=== PATIENT | male | born 1965 | race Caucasian/White ===

== ENCOUNTER 2017-05-02 17:56 | Emergency (ER) | payer MEDICARE, OTHER ==
[2017-05-02 18:00] VITALS: RESP 16
[2017-05-02] MEDS ORDERED: ONDANSETRON 4 MG/2 ML VIAL IVP STA (19:11)
[2017-05-02] MEDS ORDERED: SODIUM CHLORIDE 0.9% 1,000 ML IV STA (19:11)
[2017-05-02] MEDS ORDERED: HYDROmorphone 1 MG/ML 1 ML SYRINGE IVP STA ×2 (19:11→20:58)
[2017-05-02] MEDS ORDERED: RX INFO: IV CONTRAST WAS GIVEN 1 EACH MISC MISCELLANE PRN (19:13)
--- NOTE | 2017-05-02 19:17 | ED ---
Abdominal Pain HPI - General Chief Complaint: Abdominal Pain Stated Complaint: abd pain Time Seen by Provider: 05/02/17 19:03 Source: patient, RN notes reviewed Mode of arrival: ambulatory Limitations: no limitations - History of Present Illness Initial Comments: 51 yo male presents to the ER with cc of right lower quadrant abdominal pain x 1 day. Patient states the pain started today and has slowly gotten worse. Patient states the chest is constant pain in the right lower quadrant. Patient denies any nausea vomiting. He denies any radiation the pain. Patient states the pain is constant. Patient states it is worse touch. Patient states he is not nauseated any blood in the urine. Patient denies any abdominal surgeries. Patient denies any history of anything like this in the past. Patient denies any recent fever, chills, shortness of breath, chest pain, back pain, nausea vomiting, numbness or tingling, dysuria or hematuria, constipation or diarrhea, headaches or visual changes, or any other current symptoms. - Related Data Home Medications Medication Instructions Recorded Confirmed Estradiol 4 mg PO BID 10/06/15 05/02/17 Medroxyprogesterone Acetate 10 mg PO BID 10/06/15 05/02/17 Propranolol HCl [Inderal LA] 160 mg PO DAILY 10/06/15 05/02/17 Sertraline [Zoloft] 50 mg PO TID 10/06/15 05/02/17 Spironolactone 100 mg PO BID 10/06/15 05/02/17 lamoTRIgine [LaMICtal] 100 mg PO BID 10/06/15 05/02/17 lamoTRIgine [LaMICtal] 150 mg PO BID 10/06/15 05/02/17 risperiDONE 2 mg PO DAILY 10/06/15 05/02/17 traZODone HCL 150 mg PO BID 10/06/15 05/02/17 Hydrocodone/Acetaminophen [[place] 1 tab PO TID PRN 05/02/17 05/02/17 10-325] Ibuprofen [Motrin] 800 mg PO TID PRN 05/02/17 05/02/17 Previous Rx's Medication Instructions Recorded Dicyclomine [Bentyl] 10 mg PO TID #20 capsule 05/02/17 Ondansetron Odt [Zofran ODT] 4 mg PO Q8HR PRN #20 tab 05/02/17 Allergies Allergy/AdvReac Type Severity Reaction Status Date / Time Penicillins Allergy Unknown Verified 05/02/17 19:17 Review of Systems ROS Statement: Those systems with pertinent positive or pertinent negative responses have been documented in the HPI. ROS Other: All systems not noted in ROS Statement are negative. Past Medical History Additional Past Medical History / Comment(s): migraines. History of Any Multi-Drug Resistant Organisms: None Reported Additional Past Surgical History / Comment(s): neck surgery Past Psychological History: Anxiety, Depression, Schizoaffective Disorder Smoking Status: Current every day smoker Past Alcohol Use History: Occasional Past Drug Use History: None Reported General Exam - General Exam Comments Initial Comments: General: The patient is awake and alert, in no distress, and does not appear acutely ill. Eye: Pupils are equal, round and reactive to light, extra-ocular movements are intact; there is normal conjunctiva bilaterally. No signs of icterus. Ears, nose, mouth and throat: There are moist mucous membranes and no oral lesions. Neck: The neck is supple, there is no tenderness. Cardiovascular: There is a regular rate and rhythm. No murmur, rub or gallop is appreciated. Respiratory: Lungs are clear to auscultation, respirations are non-labored, breath sounds are equal. No wheezes, stridor, rales, or rhonchi. Gastrointestinal: Soft, non-distended, mild tenderness in right lower quadrant of the abdomen without masses or organomegaly noted. There is no rebound or guarding present. No CVA tenderness. Bowel sounds are unremarkable. Back: There is no tenderness to palpation in the midline. There is no obvious deformity. No rashes noted. Musculoskeletal: Normal ROM, no tenderness, There is no pedal edema. There is no calf tenderness or swelling. Sensation intact. Pulses equal bilaterally 2+. Neurological: CN II-XII intact, There are no obvious motor or sensory deficits. Coordination appears grossly intact. Speech is normal. Skin: Skin is warm and dry and no rashes or lesions are noted. Psychiatric: Cooperative, appropriate mood & affect, normal judgment. Limitations: no limitations Course Vital Signs 05/02/17 17:58 Temperature 98.6 F Pulse Rate 77 Respiratory 16 Rate Blood Pressure 137/95 O2 Sat by Pulse 97 Oximetry Medical Decision Making - Medical Decision Making 51-year-old male presents emergency Department chief complaint of right lower quadrant abdominal pain. Labwork is reviewed. At this time there is time. Acute finding on CAT scan. Patient was reassessed and states that he is feeling better. Patient will start her on Bentyl and Zofran for home. We did discuss etiologies this. We discussed what this could turn into an appropriate follow-up return parameters. Patient stated that he understood and all his questions have been answered. He will be discharged. - Lab Data Result diagrams: 05/02/17 19:20 05/02/17 19:20 Lab Results 05/02/17 05/02/17 05/02/17 Range/Units 19:20 19:20 19:20 WBC 8.4 (3.8-10.6) k/uL RBC 4.19 L (4.30-5.90) m/uL Hgb 13.7 (13.0-17.5) gm/dL Hct 41.3 (39.0-53.0) % MCV 98.4 (80.0-100.0) fL MCH 32.6 (25.0-35.0) pg MCHC 33.1 (31.0-37.0) g/dL RDW 13.3 (11.5-15.5) % Plt Count 256 (150-450) k/uL Neutrophils % 79 % Lymphocytes % 14 % Monocytes % 3 % Eosinophils % 2 % Basophils % 1 % Neutrophils # 6.7 (1.3-7.7) k/uL Lymphocytes # 1.2 (1.0-4.8) k/uL Monocytes # 0.3 (0-1.0) k/uL Eosinophils # 0.2 (0-0.7) k/uL Basophils # 0.1 (0-0.2) k/uL PT 10.8 (9.0-12.0) sec INR 1.1 (<1.1) APTT 25.7 (22.0-30.0) sec Sodium 136 L (137-145) mmol/L Potassium 4.6 (3.5-5.1) mmol/L Chloride 104 (98-107) mmol/L Carbon Dioxide 21 L (22-30) mmol/L Anion Gap 11 mmol/L BUN 13 (9-20) mg/dL Creatinine 0.97 (0.66-1.25) mg/dL Est GFR (MDRD) Af Amer >60 (>60 ml/min/1.73 sqM) Est GFR (MDRD) Non-Af >60 (>60 ml/min/1.73 sqM) Glucose 95 (74-99) mg/dL Plasma Lactic Acid Zi (0.7-2.0) mmol/L Calcium 9.6 (8.4-10.2) mg/dL Total Bilirubin 0.8 (0.2-1.3) mg/dL AST 13 L (17-59) U/L ALT 16 L (21-72) U/L Alkaline Phosphatase 70 (38-126) U/L Total Protein 7.6 (6.3-8.2) g/dL Albumin 4.5 (3.5-5.0) g/dL Amylase 51 (30-110) U/L Lipase 42 (23-300) U/L Urine Color Urine Appearance (Clear) Urine pH (5.0-8.0) Ur Specific [place] (1.001-1.035) Urine Protein (Negative) Urine Glucose (UA) (Negative) Urine Ketones (Negative) Urine Blood (Negative) Urine Nitrite (Negative) Urine Bilirubin (Negative) Urine Urobilinogen (<2.0) mg/dL Ur Leukocyte Esterase (Negative) Urine RBC (0-5) /hpf Urine WBC (0-5) /hpf Ur Squamous Epith Cells (0-4) /hpf Hyaline Casts (0-2) /lpf Urine Mucus (None) /hpf 05/02/17 05/02/17 Range/Units 19:20 19:35 WBC (3.8-10.6) k/uL RBC (4.30-5.90) m/uL Hgb (13.0-17.5) gm/dL Hct (39.0-53.0) % MCV (80.0-100.0) fL MCH (25.0-35.0) pg MCHC (31.0-37.0) g/dL RDW (11.5-15.5) % Plt Count (150-450) k/uL Neutrophils % % Lymphocytes % % Monocytes % % Eosinophils % % Basophils % % Neutrophils # (1.3-7.7) k/uL Lymphocytes # (1.0-4.8) k/uL Monocytes # (0-1.0) k/uL Eosinophils # (0-0.7) k/uL Basophils # (0-0.2) k/uL PT (9.0-12.0) sec INR (<1.1) APTT (22.0-30.0) sec Sodium (137-145) mmol/L Potassium (3.5-5.1) mmol/L Chloride (98-107) mmol/L Carbon Dioxide (22-30) mmol/L Anion Gap mmol/L BUN (9-20) mg/dL Creatinine (0.66-1.25) mg/dL Est GFR (MDRD) Af Amer (>60 ml/min/1.73 sqM) Est GFR (MDRD) Non-Af (>60 ml/min/1.73 sqM) Glucose (74-99) mg/dL Plasma Lactic Acid Zi 0.9 (0.7-2.0) mmol/L Calcium (8.4-10.2) mg/dL Total Bilirubin (0.2-1.3) mg/dL AST (17-59) U/L ALT (21-72) U/L Alkaline Phosphatase (38-126) U/L Total Protein (6.3-8.2) g/dL Albumin (3.5-5.0) g/dL Amylase (30-110) U/L Lipase (23-300) U/L Urine Color Yellow Urine Appearance Clear (Clear) Urine pH 5.5 (5.0-8.0) Ur Specific [place] 1.025 (1.001-1.035) Urine Protein 1+ H (Negative) Urine Glucose (UA) Negative (Negative) Urine Ketones 3+ H (Negative) Urine Blood Trace H (Negative) Urine Nitrite Negative (Negative) Urine Bilirubin Negative (Negative) Urine Urobilinogen 2.0 (<2.0) mg/dL Ur Leukocyte Esterase Negative (Negative) Urine RBC 2 (0-5) /hpf Urine WBC 6 H (0-5) /hpf Ur Squamous Epith Cells 3 (0-4) /hpf Hyaline Casts 4 H (0-2) /lpf Urine Mucus Rare H (None) /hpf - Radiology Data Radiology results: report reviewed, image reviewed Disposition Clinical Impression: Abdominal pain Disposition: TRANSFER TO PSYCH HOSP/UNIT Condition: Stable Instructions: Abdominal Pain (ED) Additional Instructions: Please use medication as discussed. Please follow up with family doctor if symptoms have not improved over the next two days. Please return to the emergency room if your symptoms increase or worsen or for any other concerns. Prescriptions: Dicyclomine [Bentyl] 10 mg PO TID #20 capsule Ondansetron Odt [Zofran ODT] 4 mg PO Q8HR PRN #20 tab PRN Reason: Nausea Referrals: Umang Ace MD [Primary Care Provider] - 1-2 days Time of Disposition: 20:57
[2017-05-02 19:45] LABS: Appearance,Urine Clear (Clear); Bilirubin,Urine Negative (Negative); Glucose,Urine (UA) Negative (Negative); Ketones,Urine 3+ (Negative); Leukocyte Esterase,Urine Negative (Negative); Mucus,Urine Rare /hpf; Nitrite,Urine Negative (Negative); PH, Urine 5.5 (5.0-8.0); Particle Count 3728; Protein,Urine 1+ (Negative); RBC,Urine 2 /hpf (0-5); Specific Gravity,Urine 1.025 (1.001-1.035); Squamous Epithelial Cell,Urine 3 /hpf (0-4); UA Billing (MACRO vs. MICRO) MICRO; WBC,Urine 6 /hpf (0-5)
[2017-05-02 19:46] LABS: Basophils # (A) 0.1 k/uL (0-0.2); Basophils % (A) 1 %; CH 33.7; CHCM 34.5; Eosinophils # (A) 0.2 k/uL (0-0.7); Eosinophils % (A) 2 %; HCT 41.3 % (39.0-53.0); HDW 2.51; HGB 13.7 gm/dL (13.0-17.5); Luc # (Auto) 0.11; Luc % (Auto) 1; Lymphocytes # (A) 1.2 k/uL (1.0-4.8); Lymphocytes % (A) 14 %; MCH 32.6 pg (25.0-35.0); MCHC 33.1 g/dL (31.0-37.0); MCV 98.4 fL (80.0-100.0); Mean Platelet Volume 6.8; Monocytes # (A) 0.3 k/uL (0-1.0); Monocytes % (A) 3 %; Neutrophils # (A) 6.7 k/uL (1.3-7.7); Neutrophils % (A) 79 %; RBC 4.19 m/uL (4.30-5.90); RDW 13.3 % (11.5-15.5); WBC 8.4 k/uL (3.8-10.6); WBC (Perox) 8.56
[2017-05-02 19:52] LABS: ALT 16 U/L (21-72); AST 13 U/L (17-59); Alkaline Phosphatase 70 U/L (38-126); Amylase 51 U/L (30-110); Anion Gap 11 mmol/L; Blood Urea Nitrogen 13 mg/dL (9-20); Calcium 9.6 mg/dL (8.4-10.2); Carbon Dioxide 21 mmol/L (22-30); Chloride 104 mmol/L (98-107); Glucose 95 mg/dL (74-99); Non-African American GFR(MDRD) >60 (>60 ml/min/1.73 sqM); Potassium 4.6 mmol/L (3.5-5.1); Sodium 136 mmol/L (137-145); Total Bilirubin 0.8 mg/dL (0.2-1.3); Total Protein 7.6 g/dL (6.3-8.2)
[2017-05-02 19:56] LABS: INR 1.1 (<1.1)
[2017-05-02 19:57] LABS: Partial Thromboplastin Time 25.7 sec (22.0-30.0); Prothrombin Time 10.8 sec (9.0-12.0)
--- NOTE | 2017-05-02 20:43 | CT ---
EXAMINATION TYPE: CT abdomen pelvis w con DATE OF EXAM: 05/02/2017 COMPARISON: NONE HISTORY: Right lower quadrant pain x [address] DLP: 1321.00 mGycm Automated exposure control for dose reduction was used. TECHNIQUE: Helical acquisition of images was performed from the lung bases through the pelvis. CONTRAST: Performed without Oral Contrast and with IV Contrast, patient injected with 100 mL of Omnipaque 300. FINDINGS: Lung bases are clear. There is no pleural effusion. Heart size is normal. Liver spleen pancreas gallbladder appear normal. Bile ducts are not dilated. There is no adrenal mass . Kidneys show satisfactory contrast opacification. There is no hydronephrosis. There is no retroperi toneal adenopathy. There is no ascites. Bladder distends smoothly. There is no pelvic mass. Appendix is not definitely seen. There is no sign of appendicitis. There is no sign of a hernia. The bony stru ctures are intact. There is no evidence of a fracture. IMPRESSION: NEGATIVE CT SCAN OF THE ABDOMEN AND PELVIS. NO SIGN OF APPENDICITIS.
[2017-05-02 21:07] VITALS: BP 116/56; PULSE 56; TEMP 97.8
== END 2017-05-02 22:00 | disposition home or self-care (01) ==
LOC: EC 17:56
DX: R10.31 Right lower quadrant pain (principal); F32.9 Major depressive disorder, single episode, unspecified; F17.200 Nicotine dependence, unspecified, uncomplicated; Z88.0 Allergy status to penicillin; Z79.899 Other long term (current) drug therapy
CPT/HCPCS: 99284; 96374; 96376; 96375; 96361; 36415; 80053; 82150; 83605; 83690; 85025; 85610; 85730; 81001; 87040; 87086; 74177; J2405; J1170; Q9967

== ENCOUNTER → 2017-05-29 | Outpatient (CLI) | payer MEDICARE, OTHER ==
--- NOTE | 2017-05-29 21:43 | NM ---
EXAMINATION TYPE: NM hepatobiliary w EF DATE OF EXAM: 05/29/2017 COMPARISON: NONE HISTORY: TECHNIQUE: After the intravenous administration of 5.4 mCi Tc 99m Mebrofenin hepatobiliary scintigrap hy is performed. Immediate images post injection. FINDINGS: There is prompt uptake of the tracer by the liver that has normal size and contour. There is tracer i n the small bowel at 15 minutes and in the gallbladder at 5 minutes which excludes obstruction of the cystic duct and common bile duct. There is no focal liver defect. Tracers mostly cleared from the li walter at one hour. The post ensure images show gallbladder ejection fraction of 48% which is normal. IMPRESSION: Normal hepatobiliary scan. Normal gallbladder ejection fraction of 48%.
== END | disposition home or self-care (01) ==
LOC: RADNMMAIN 14:33
PROVIDERS: ATTEND Internal Medicine
DX: R10.11 Right upper quadrant pain (principal); Z88.0 Allergy status to penicillin
CPT/HCPCS: 78226; A9537

== ENCOUNTER → 2018-03-06 | Outpatient (CLI) | payer MEDICARE, OTHER ==
--- NOTE | 2018-03-06 15:20 | CT ---
EXAMINATION TYPE: CT lumbar spine wo con DATE OF EXAM: 03/06/2018 COMPARISON: NONE HISTORY: Lower back pain CT DLP: [address] of the lumbar spine was performed. Bone and soft tissue window settings are submitted as well as coronal and sagittal reconstructions. L1-L2: Normal disc space height. No disc herniation protrusion or central stenosis. No facet joint arthropathy. No evidence for foraminal encroachment. L2-L3: Normal disc space height. No disc herniation protrusion or central stenosis. No facet joint arthropathy. No evidence for foraminal encroachment. L3-L4: Mild degenerative disc space narrowing. Moderate circumferential disc bulge greatest posterior ly. Effacement ventral thecal sac. Bilateral lateral recess stenosis. L4-L5: Mild degenerative disc space narrowing. Subligamentous disc herniation paracentrally and to th e right resulting in effacement of the ventral thecal sac and right lateral recess stenosis as well a s right foraminal encroachment. Mild central stenosis noted. L5-S1: Mild degenerative disc space narrowing. Subligamentous disc bulge. No herniation of protrusion . No central stenosis. No paraspinal masses are identified. Lumbar segments are free if fracture. IMPRESSION: 1. Right paracentral disc herniation at L4-5 resulting in right lateral recess stenosis as well as a borderline central stenosis and right foraminal encroachment. 2. Disc bulging with lateral recess stenosis at L3-4 as noted.
--- NOTE | 2018-03-06 15:50 | MR ---
EXAMINATION TYPE: MR brain wo con DATE OF EXAM: 03/06/2018 COMPARISON: NONE HISTORY: Headaches with some left-sided hearing loss and dizziness. TECHNIQUE: Multiplanar, multisequence imaging of the brain and brainstem is performed without IV cont rast. FINDINGS: Diffusion weighted images demonstrate no evidence of a recent infarct or other diffusion abnormality. There is no worrisome extra-axial fluid collection. There is ventricular and sulcal prominence consis tent with mild diffuse age-related cerebral atrophy. Small areas of low-attenuation periventricular w ed[place] matter are noted consistent with mild to minimal chronic small vessel ischemic change. Midline structures demonstrate normal morphology. The craniocervical junction appears within normal limits. Normal vascular flow voids are present. There is moderate to severe mucosal thickening involv ing maxillary sinuses bilaterally. There is moderate mucosal thickening involving ethmoid sinuses brandon aterally. There is mild mucosal thickening involving bilateral frontal sinuses. The globes are intact bilaterally. IMPRESSION: 1. No evidence of a recent infarct. 2. Increased fluid signal left mastoid air cells raises concern for left-sided mastoiditis, correlate clinically. 3. Mild to minimal diffuse age-related cerebral atrophy and chronic small vessel ischemic change. 4. Chronic paranasal sinus disease as detailed above.
--- NOTE | 2018-03-06 16:23 | CT ---
EXAMINATION TYPE: CT cervical spine wo con DATE OF EXAM: 03/06/2018 COMPARISON: NONE HISTORY: Neck pain CT DLP: [address] of the cervical spine was performed with bone and soft tissue window settings submitted . Coronal and sagittal reconstruction is obtained. There is normal alignment and prevertebral soft tissues. Thyroid nodules are noted which are nonspecific. Nodular density right upper lobe image 100. CT chest recommended. Postsurgical changes of the anterior cervical discectomy and fusion at C5-6 through C7. Anterior fixa tion plate noted. Solid fusion seen. No evidence for recurrent disease. Mild posterior hypertrophic c hange. Mild degenerative disc space narrowing noted at C3-4 and C4-5 with mild posterior disc bulge. No kita k herniation or protrusion. No central stenosis. Foramina are patent. IMPRESSION: 1. Degenerative disc disease as noted. 2. Changes of ACDF with appropriate alignment. 3. Right upper lobe pulmonary nodule. CT chest recommended.
== END | disposition home or self-care (01) ==
LOC: RADCTMAIN 14:30
PROVIDERS: ATTEND Psychiatry & Neurology Neurology
DX: M48.061 Spinal stenosis, lumbar region without neurogenic claudication (principal); M51.26 Other intervertebral disc displacement, lumbar region; M50.30 Other cervical disc degeneration, unspecified cervical region; I67.82 Cerebral ischemia; G31.9 Degenerative disease of nervous system, unspecified; Z98.1 Arthrodesis status; Z88.0 Allergy status to penicillin; Z88.2 Allergy status to sulfonamides
CPT/HCPCS: 70551; 72125; 72131

== ENCOUNTER 2018-03-11 12:24 | Emergency (ER) | payer MEDICARE, OTHER ==
[2018-03-11 12:43] VITALS: PULSE 63; RESP 20
--- NOTE | 2018-03-11 12:47 | ED ---
General Adult HPI - General Chief complaint: Neck Pain/Injury Stated complaint: Metal plates in throat causing diff breathing Time Seen by Provider: 03/11/18 12:44 Source: patient, RN notes reviewed, old records reviewed Mode of arrival: ambulatory Limitations: no limitations - History of Present Illness Initial comments: This is a 52-year-old male to the ER for evaluation of headache. Patient has current headache now. Neck pain. Anterior neck pain. Patient has significant history of neck disease back disease disc disease. Patient had surgery about 10 years ago. Patient states he had a CAT scan as of recent with his neurologist still complaining with pain. Patient states he felt a twisting motion in his neck recently and currently complaining of neck pain. Concern for movement of plates etc. - Related Data Home Medications Medication Instructions Recorded Confirmed Estradiol 4 mg PO BID 10/06/15 05/02/17 Medroxyprogesterone Acetate 10 mg PO BID 10/06/15 05/02/17 Propranolol HCl [Inderal LA] 160 mg PO DAILY 10/06/15 05/02/17 Sertraline [Zoloft] 50 mg PO TID 10/06/15 05/02/17 Spironolactone 100 mg PO BID 10/06/15 05/02/17 lamoTRIgine [LaMICtal] 100 mg PO BID 10/06/15 05/02/17 lamoTRIgine [LaMICtal] 150 mg PO BID 10/06/15 05/02/17 risperiDONE 2 mg PO DAILY 10/06/15 05/02/17 traZODone HCL 150 mg PO BID 10/06/15 05/02/17 Hydrocodone/Acetaminophen [[place] 1 tab PO TID PRN 05/02/17 05/02/17 10-325] Ibuprofen [Motrin] 800 mg PO TID PRN 05/02/17 05/02/17 Previous Rx's Medication Instructions Recorded Dicyclomine [Bentyl] 10 mg PO TID #20 capsule 05/02/17 Ondansetron Odt [Zofran ODT] 4 mg PO Q8HR PRN #20 tab 05/02/17 Allergies Allergy/AdvReac Type Severity Reaction Status Date / Time Penicillins Allergy Unknown Verified 03/11/18 12:42 Review of Systems ROS Statement: Those systems with pertinent positive or pertinent negative responses have been documented in the HPI. ROS Other: All systems not noted in ROS Statement are negative. Past Medical History Additional Past Medical History / Comment(s): migraines. History of Any Multi-Drug Resistant Organisms: None Reported Additional Past Surgical History / Comment(s): neck surgery x2 Past Psychological History: Anxiety, Depression, Schizoaffective Disorder Smoking Status: Current every day smoker Past Alcohol Use History: Occasional Past Drug Use History: Marijuana General Exam Limitations: no limitations General appearance: alert, in no apparent distress Head exam: Present: atraumatic, normocephalic, normal inspection Eye exam: Present: normal appearance, PERRL, EOMI. Absent: scleral icterus, conjunctival injection, periorbital swelling ENT exam: Present: normal exam, mucous membranes moist Neck exam: Present: normal inspection. Absent: tenderness, meningismus, lymphadenopathy Respiratory exam: Present: normal lung sounds bilaterally. Absent: respiratory distress, wheezes, rales, rhonchi, stridor Cardiovascular Exam: Present: regular rate, normal rhythm, normal heart sounds. Absent: systolic murmur, diastolic murmur, rubs, gallop, clicks GI/Abdominal exam: Present: soft, normal bowel sounds. Absent: distended, tenderness, guarding, rebound, rigid Extremities exam: Present: normal inspection, full ROM, normal capillary refill. Absent: tenderness, pedal edema, joint swelling, calf tenderness Back exam: Present: normal inspection Neurological exam: Present: alert, oriented X3, CN II-XII intact Psychiatric exam: Present: normal affect, normal mood Skin exam: Present: warm, dry, intact, normal color. Absent: rash Course Vital Signs 03/11/18 12:39 Temperature 98.3 F Pulse Rate 63 Respiratory 20 Rate Blood Pressure 161/68 O2 Sat by Pulse 97 Oximetry - Reevaluation(s) Reevaluation #1: 03/11/18 13:46 Medical record prior imaging is reviewed Medical Decision Making - Medical Decision Making 52 male the ER for evaluation of neck pain. Possible slipped hardware. Patient to be discharged - Radiology Data Radiology results: report reviewed (CT cervical spine cervical spine shows no change), image reviewed Disposition Clinical Impression: Strain of neck muscle Disposition: HOME SELF-CARE Condition: Good Instructions: Cervical Strain (ED) Referrals: Umang Ace MD [Primary Care Provider] - 1-2 days
--- NOTE | 2018-03-11 14:09 | CT ---
EXAMINATION TYPE: CT cervical spine wo con DATE OF EXAM: 03/11/2018 COMPARISON: Previous study dated 03/06/2018 HISTORY: Pt states metal plates in throat causing difficulty breathing, cervical fusion [address] DLP: 351.6 mGycm Automated exposure control for dose reduction was used. TECHNIQUE: CT scan of the cervical spine is obtained without contrast, axial images are obtained, sa gittal and coronal reformatted images are also reviewed. FINDINGS: There are emphysematous changes within the lungs. There is an ill-defined right upper lobe pulmonary nodule best seen on image 98, unchanged from previous. There is apical scarring. There is thyroid nodularity on the left, unchanged from previous. Prevertebral soft tissues are other [place] unremarkable. There is been a previous ACDF from C5 through C7. Alignment remains normal. Atlantoaxial relationship s are normal. There is degenerative disc disease and hypertrophic spondylosis at C3-4 and C4-5, above the fusion. There is mild facet arthropathy on the left at the C5-6 level. There is also bilateral f acet arthropathy at C3-4. This is causing bilateral intervertebral foraminal narrowing. There is a si milar appearance at C4-5 with mild, bilateral intervertebral foraminal narrowing there is also interv ertebral foraminal narrowing at C5-6 due to hypertrophic changes. No definite protrusion is seen. IMPRESSION: 1. STATUS POST ACDF EXTENDING FROM C5-6 THROUGH C6-7. 2. DEGENERATIVE CHANGE IN THE REMAINING DISC LEVELS. 3. MULTILEVEL INTERVERTEBRAL FORAMINAL NARROWING. 4. NONSPECIFIC RIGHT UPPER LOBE PULMONARY NODULE. A CT SCAN OF THE CHEST WOULD BE SUGGESTED.
[2018-03-11 14:25] VITALS: BP 126/70; TEMP 98
== END 2018-03-11 14:27 | disposition home or self-care (01) ==
LOC: EC 12:24
DX: S16.1XXA Strain of muscle, fascia and tendon at neck level, initial encounter (principal); R51 Headache; F32.9 Major depressive disorder, single episode, unspecified; F41.9 Anxiety disorder, unspecified; F25.9 Schizoaffective disorder, unspecified; F17.200 Nicotine dependence, unspecified, uncomplicated; Z79.899 Other long term (current) drug therapy; Z88.0 Allergy status to penicillin
CPT/HCPCS: 72125; 99284

== ENCOUNTER → 2018-03-19 | Outpatient (CLI) | payer MEDICARE, OTHER ==
[2018-03-19 18:14] LABS: Blood Urea Nitrogen 10 mg/dL (9-20)
--- NOTE | 2018-03-19 22:12 | CT ---
EXAMINATION TYPE: CT chest w con DATE OF EXAM: 03/19/2018 COMPARISON: NONE HISTORY: Follow up Abnormal CT CT DLP: 261.2 mGycm Automated exposure control for dose reduction was used. CONTRAST: CT scan of the chest is performed with IV Contrast, patient injected with 100 mL of Isovue 300. FINDINGS: There is mild reticular density at the lung apices and minimal pleural thickening. I see no pulmonary mass. There is minimal focal pulmonary emphysema. Heart size is normal. There is no pericardial effusion. There is no mediastinal adenopathy. There are no hilar masses. Thoracic aorta appears normal without evidence of aneurysm or dissection. The bony thorax is intact. There is no pleural effusion. IMPRESSION: Mild upper lobe pleural and pulmonary scarring at the lung apices. Minimal COPD. Mild [place] bpleural pulmonary scarring at the right lung base posteriorly. I do not suspect a neoplastic process .
== END | disposition home or self-care (01) ==
LOC: RADCTMAIN 17:36
PROVIDERS: ATTEND Internal Medicine
DX: J44.9 Chronic obstructive pulmonary disease, unspecified (principal); J98.4 Other disorders of lung; Z88.0 Allergy status to penicillin
CPT/HCPCS: 82565; 84520; 71260; 36415; Q9967

== ENCOUNTER → 2018-03-20 | Outpatient (CLI) | payer MEDICARE, OTHER ==
--- NOTE | 2018-03-20 20:01 | US ---
EXAMINATION TYPE: US carotid duplex BILAT DATE OF EXAM: 03/20/2018 COMPARISON: NONE CLINICAL HISTORY: R55 Syncope. Hx of blackouts per patient. No HTN. EXAM MEASUREMENTS: RIGHT: Peak Systolic Velocity (PSV) cm/sec ----- Right CCA: 111.3 ----- Right ICA: 121.5 ----- Right ECA: 83.1 ICA/CCA ratio: 1.1 RIGHT: End Diastole cm/sec ----- Right CCA: 28.5 ----- Right ICA: 47.4 ----- Right ECA: 18.2 LEFT: Peak Systolic Velocity (PSV) cm/sec ----- Left CCA: 103.9 ----- Left ICA: 118.9 ----- Left ECA: 106.9 ICA/CCA ratio: 1.1 LEFT: End Diastole cm/sec ----- Left CCA: 32.5 ----- Left ICA: 57.5 ----- Left ECA: 18.9 VERTEBRALS (direction of flow): Right Vertebral: Antegrade Left Vertebral: Antegrade Rhythm: Normal Bilateral wall thickening. No significant stenosis or plaque. Slight elevated left proximal and mid CCA. Incidental finding: Left thyroid cystic appearing nodule with echogenic foci seen within = 2.0 x 1.5 x 0.9 cm IMPRESSION: There is antegrade flow in the vertebral arteries. The images and measurements suggest 2 0-30% stenosis in both internal carotid arteries. There is noted a complex cyst in the left thyroid l obe. Criteria for Assigning % of Stenosis / Diameter reduction (Estimation based on the indirect measurements of the internal carotid artery velocities (ICA PSV). 1. Normal (no stenosis)=ICA PSV < 125 cm/s: ratio < 2.0: ICA EDV<40 cm/s. 2. Less than 50% stenosis=ICA PSV < 125 cm/s: ratio < 2.0: ICA EDV<40 cm/s. 3. 50 to 69% stenosis=ICA PSV of 125 to 230 cm/s: ration 2.0 ? 4.0: ICA EDV 40-100 cm/s. 4. Greater than 70% stenosis to near occlusion= ICA PSV > 230 cm/s: ratio > 4.0: ICA EDV > 100 cm/s. 5. Near occlusion= ICA PSV velocities may be low or undetectable: variable ratio and ICA EDV. 6. Total occlusion=unable to detect flow.
== END | disposition home or self-care (01) ==
LOC: RADUSWWP 16:54
PROVIDERS: ATTEND Psychiatry & Neurology Neurology
DX: I65.23 Occlusion and stenosis of bilateral carotid arteries (principal)
CPT/HCPCS: 93880

== ENCOUNTER → 2018-05-02 | Outpatient (CLI) | payer MEDICARE, OTHER ==
[2018-05-02 15:36] LABS: Blood Urea Nitrogen 10 mg/dL (9-20)
--- NOTE | 2018-05-02 16:52 | CT ---
EXAMINATION TYPE: CT iac wo/w con DATE OF EXAM: 05/02/2018 COMPARISON: NONE HISTORY: Fluid in ears, earache CT DLP: 300 mGycm. Automated Exposure Control for Dose Reduction was Utilized. TECHNIQUE: CT scan of internal auditory canal is performed without contrast, thin cut axial images ar e obtained, coronal reformatted images are also reviewed. FINDINGS: The external auditory canals are patent bilaterally although there is a small amount of cer umen within the right external auditory canal that is nonocclusive. Mastoid air cells show no eviden ce of abnormal opacification bilaterally. The middle ear ossicles are symmetric and unremarkable. T here is no evidence of suspicious surrounding soft tissue density to suggest cholesteatoma. The scut um is preserved bilaterally. The cochlea and the semicircular canals are symmetric and unremarkable. Vestibular aqueduct and internal carotid canal appear unremarkable. Temporomandibular joints are symmetric and maintained. Visualized portion brain are suboptimally boris luated given technique, however no gross evidence of cerebellar pontine angle mass is identified. Sma ll bilateral antrostomy defects are seen. Bilateral maxillary 2 mm mucosal retention cysts are noted. There is moderate mucosal thickening within the sphenoid sinus and ethmoid sinuses. Frontal sinuses are well aerated. Soft tissue polypoid frontal skin lesion is incidentally noted. No abnormal postcon trast enhancement. IMPRESSION: 1. No CT evidence of cholesteatoma, mastoiditis, semicircular canal dehiscence, middle ear cavity flu id, gross evidence of cerebellar pontine angle mass, or other etiology for hearing loss seen on CT. E nhanced MRI could be performed to evaluate the 7th and 8th cranial nerves if there is further clinica l concern. 2. Small amount of nonocclusive cerumen within the right external auditory canal. No middle ear cavit y fluid. 3. Mild paranasal sinus disease as described above. 4. No abnormal postcontrast enhancement.
== END | disposition home or self-care (01) ==
LOC: RADCTMAIN 15:01
PROVIDERS: ATTEND Otolaryngology
DX: H91.90 Unspecified hearing loss, unspecified ear (principal)
CPT/HCPCS: 82565; 84520; 70482; 36415; Q9967

== ENCOUNTER → 2018-06-08 | Day surgery (SDC) | payer MEDICARE, OTHER ==
[~2018-06-08] MED LIST: SODIUM CHLORIDE 0.9% 1,000 ML IV SCH
[2018-06-08 08:11] VITALS: BP 127/69; PULSE 57; RESP 18; TEMP 98.3
--- NOTE | 2018-06-08 12:28 | P.PCN ---
Preoperative Diagnosis: Indication for the procedure Recurrent dizzy spells Twelve-lead ECG Sinus rhythm 58 beats a minute normal DC narrow QRS normal ST segments Tilt table test per protocol Baseline blood pressure 116/70 mmHg Baseline heart rate 58 beats a minute patient was tilted upright [place] 70 per protocol there was no change in her heart rate and blood pressure. No evidence for neurocardiogenic syncope she was laid supine at the end of the procedure Impression normal heart rate and blood pressure response to upright tilting
== END ==
LOC: CATHEP 07:47 → EDSEX 09:00
PROVIDERS: ATTEND Internal Medicine Clinical Cardiac Electrophysiology
DX: R55 Syncope and collapse (principal)
CPT/HCPCS: 93005; 93660

== ENCOUNTER → 2018-08-15 | Outpatient (CLI) | payer MEDICARE, OTHER ==
--- NOTE | 2018-08-15 21:45 | MR ---
EXAMINATION TYPE: MR thoracic spine wo con DATE OF EXAM: 08/15/2018 COMPARISON: No prior MRI thoracic spine. HISTORY: Mid back pain x several years CONTRAST: Performed utilizing 0 mL intravenous Gadavist gadolinium contrast. TECHNIQUE: Multiplanar, multiecho imaging on a 3.0 Gay magnet is performed through the thoracic spi ne. Spinal cord maintains normal signal through its visualized course. Vertebral body alignment is normal. Vertebral body heights are preserved. Disc heights are preserved. Disc hydration levels are preserved. No spinal canal stenosis is evident. T8-9: There is some subligamentous central disc herniation with moderate anterior thecal sac compress ion. This has cord contact and mild cord deformity. No AP spinal canal stenosis present. Neural ke en are patent. T9-10: There is a right paracentral tiny disc herniation with mild anterior thecal sac compression. N o cord contact is evident. No spinal canal stenosis or neural foraminal stenosis is present. T12-L1: Some mild right paracentral disc bulge has mild anterior thecal sac compression. No cord cont act is evident. No spinal canal stenosis or neural foraminal stenosis is present. Incidental note is made of disc bulging which may have some spinal canal narrowing at C3-4 and possib ly C4-5 on the blasting entryman images. Dedicated MRI of the cervical spine can be performed if clinically indic ated. These findings may have been present on a comparison MRI cervical spine 12/05/2011. IMPRESSIONS: 1. Central subligamentous disc herniation T8-T9 with moderate anterior thecal sac compression and cor d contact with mild cord deformity. 2. Tiny right paracentral disc herniation without cord contact or spinal canal stenosis T9-10. 3. Mild right paracentral disc bulging T12-L1 mild anterior thecal sac compression without cord conta ct. 4. Incidental note made of C3-4, C4-5 disc bulging with spinal canal narrowing blasting entryman images.
== END | disposition home or self-care (01) ==
LOC: RADMRIMAIN 20:15
PROVIDERS: ATTEND Psychiatry & Neurology Pain Medicine
DX: M51.24 Other intervertebral disc displacement, thoracic region (principal); M51.25 Other intervertebral disc displacement, thoracolumbar region; Z88.0 Allergy status to penicillin; Z88.2 Allergy status to sulfonamides
CPT/HCPCS: 72146

== ENCOUNTER → 2019-07-22 | Outpatient (CLI) | payer MEDICARE, OTHER ==
--- NOTE | 2019-07-22 09:53 | US ---
EXAMINATION TYPE: US thyroid st tissue head/neck DATE OF EXAM: 07/22/2019 COMPARISON: Carotid US CLINICAL HISTORY: E04.1 Thyroid Nodule,. GLAND SIZE: Right Lobe: 4.4 x 1.5 x 1.1 cm Overall Parenchyma: homogenous Left Lobe: 4.4 x 1.6 x 1.4 cm Overall Parenchyma: homogeneous Isthmus Thickness: 0.5 cm NODULES RIGHT: # of nodules measured on right: 1 1. 0.3 X 0.2 x 0.2 cm hypoechoic cystic nodule at the lower pole with well-defined margins; . This nodule is as tall as wide and shows no intranodular vascularity. Prior size: No Previous LEFT: # of nodules measured on left: 1. 2.2 X 1.2 x 1.0 cm hypoechoic mixed nodule at the lower pole with well-defined margins. Ringdown artifact is seen within this nodule indicating benign colloid. This nodule is wider than tall and sh ows no intranodular vascularity. Prior size: 2.0 x 1.5 x 0.9 cm as seen on carotid US exam. ISTHMUS: # of nodules measured in the isthmus: 0 Bilateral neck scanned, no evidence of lymphadenopathy. IMPRESSION: 1. 2.2 cm left thyroid nodules compatible with a benign colloid cyst. 2. Right-sided 0.3 cm nodule appears cystic and is likely benign. Follow-up could be considered in 12 months.
--- NOTE | 2019-07-22 10:46 | FL ---
EXAMINATION TYPE: FL barium swallow w video DATE OF EXAM: 07/22/2019 COMPARISON: NONE HISTORY: Dysphasia, thyroid nodule TECHNIQUE: Fluoroscopy. FINDINGS: Fluoroscopic guidance was provided for the procedure performed in conjunction with the [facility] pathology department. Please see complete report forthcoming from the Speech Pathology departmen t. Various consistencies from thin liquid to solids were administered. Fluoroscopy time 1 minute 34 seconds. Number of images: 0. There is transient penetration with thin liquids. No aspiration was evident. Remaining consistencies were normal without aspiration or penetration. No significant pooling was observed in the vallecula. There was normal propulsion of the bolus. IMPRESSION: 1. Mild transient penetration with thin liquids. 2. No aspiration evident with multiple consistencies.
== END | disposition home or self-care (01) ==
LOC: RADUSMAIN 09:00
PROVIDERS: ATTEND Psychiatry & Neurology Neurology
DX: E04.1 Nontoxic single thyroid nodule (principal)
CPT/HCPCS: 74230; 76536

== ENCOUNTER → 2020-02-11 | Outpatient (CLI) | payer MEDICARE, OTHER ==
--- NOTE | 2020-02-11 08:37 | US ---
EXAMINATION TYPE: US gallbladder DATE OF EXAM: 02/11/2020 COMPARISON: CT May 02 2017 CLINICAL HISTORY: K81.9 CHOLECYSTITIS. Right upper quadrant pain per patient. EXAM MEASUREMENTS: Liver Length: 7.9 cm Gallbladder Wall: 0.2 cm CBD: 0.5 cm Right Kidney: 11.8 x 4.5 x 6.6 cm Pancreas: wnl Liver: wnl Gallbladder: No stones seen Evidence for sonographic Quevedo's sign: No CBD: wnl Right Kidney: No hydronephrosis or masses seen Visualized pancreas and liver are unremarkable. Gallbladder seen without shadowing mobile gallstones. Limited images of right kidney show no gross hydronephrosis. IMPRESSION: No gallstones or ultrasound evidence for acute cholecystitis.
== END | disposition home or self-care (01) ==
LOC: RADUSWWP 08:08
PROVIDERS: ATTEND Surgery Plastic and Reconstructive Surgery
DX: K81.9 Cholecystitis, unspecified (principal); Z88.0 Allergy status to penicillin; Z88.2 Allergy status to sulfonamides
CPT/HCPCS: 76705

== ENCOUNTER → 2020-04-27 | Outpatient (CLI) | payer MEDICARE, OTHER | END | disposition home or self-care (01) | LOC: LABWHC1 11:02 | PROVIDERS: ATTEND Surgery Plastic and Reconstructive Surgery | DX: Z11.59 Encounter for screening for other viral diseases (principal) ==

== ENCOUNTER 2020-04-29 07:41 | Day surgery (SDC) | payer MEDICARE, OTHER ==
[2020-04-24 15:03] VITALS: BMI 22.3
--- NOTE | 2020-04-28 20:41 | P.GSHP ---
History of Present Illness H&P Date: 04/29/20 CHIEF COMPLAINT: GERD and colon screen HISTORY OF PRESENT ILLNESS: The patient is a 54-year-old male who presents with gastroesophageal reflux disease and need for colon screen. Upper and lower endoscopy were offered for further evaluation and management. PAST MEDICAL HISTORY: Please see list. PAST SURGICAL HISTORY: Please see list. MEDICATIONS: Please see list. ALLERGIES: Please see list. SOCIAL HISTORY: No illicit drug use FAMILY HISTORY: No reports of Crohn disease or ulcerative colitis. REVIEW OF ORGAN SYSTEMS: CONSTITUTIONAL: No reports of fevers or chills. PHYSICAL EXAM: VITAL SIGNS: Stable GENERAL: Well-developed pleasant in no acute distress. HEENT: No scleral icterus. Extraocular movements grossly intact. Moist buccal mucosa. NECK: Supple without lymphadenopathy. CHEST: Unlabored respirations. Equal bilateral excursions. CARDIOVASCULAR: Regular rate and rhythm. Distal 2+ pulses. ABDOMEN: Soft, nondistended. MUSCULOSKELETAL: No clubbing, cyanosis, or edema. ASSESSMENT: 1. Gastroesophageal reflux disease 2. Colon screen. PLAN: 1. Recommend proceeding with an upper and lower endoscopy Past Medical History Past Medical History: Asthma, COPD, Osteoarthritis (OA), Syncope Additional Past Medical History / Comment(s): Migraines. CHRONIC NECK AND LOWER BACK PAIN. recurrent morning vomitting- History of Any Multi-Drug Resistant Organisms: None Reported Past Surgical History: Orthopedic Surgery Additional Past Surgical History / Comment(s): Neck surgery x2 Past Anesthesia/Blood Transfusion Reactions: No Reported Reaction Smoking Status: Current every day smoker - Past Family History Mother Family Medical History: No Reported History Medications and Allergies Home Medications Medication Instructions Recorded Confirmed Type Fluticasone/Vilanterol [Breo 1 puff INHALATION QA 06/07/18 04/24/20 History Ellipta 100-25 Mcg Inhaler] Umeclidinium [place] [Incruse 1 puff IN QAM 06/07/18 04/24/20 History Ellipta] oxyCODONE-APAP 10-325MG [Percocet 1 tab PO Q6HR PRN 04/24/20 04/24/20 History 10-325 mg] Allergies Allergy/AdvReac Type Severity Reaction Status Date / Time Latex, Natural Rubber Allergy Rash/Hives Verified 04/24/20 15:04 Penicillins Allergy Unknown Verified 04/24/20 14:50 Childhood Sulfa (Sulfonamide Allergy Unknown Verified 04/24/20 14:50 Antibiotics) Childhood
[~2020-04-29 07:41] MED LIST changes: +LACTATED RINGERS 1,000 ML IV SCH; +LIDOCAINE 1% (10MG/ML) FOR IV START INTRADERMA PRN; -SODIUM CHLORIDE 0.9% 1,000 ML IV SCH
[2020-04-29 08:03] VITALS: TEMP 97.8
[2020-04-29 08:09] LABS: Glucose,Whole Blood 113 mg/dL (75-99)
[2020-04-29] MEDS ORDERED: PROPOFOL 10 MG/ML 20 ML VIAL IV ONE (08:21)
[2020-04-29] MEDS ORDERED: fentaNYL (PF) 50 MCG/ML 2 ML AMP ONE (08:21)
[2020-04-29] MEDS ORDERED: MIDAZOLAM 2 MG/2 ML VIAL ONE (08:21)
--- NOTE | 2020-04-29 08:25 | P.HPADDEND ---
H&P Addendum H&P Addendum Date: 04/29/20 Patient seen and evaluated. Benefits and risks of upper and lower endoscopy described.
--- NOTE | 2020-04-29 08:37 | P.PCN ---
Date of Procedure: 04/29/20 Description of Procedure: PREOPERATIVE DIAGNOSIS: Gastroesophageal reflux disease. Chronic tobacco abuse POSTOPERATIVE DIAGNOSIS: Chronic tobacco abuse Gastritis. Gastroesophageal reflux disease. Diaphragmatic hiatal hernia OPERATION: Esophagogastroduodenoscopy with biopsies along antrum. SURGEON: Selam Gutierrez MD ANESTHESIA: MAC. INDICATIONS: The patient is a 54-year-old male who presents with a history of reflux disease. Benefits and risks of the procedure were described. Informed consent was obtained. DESCRIPTION: The patient was brought into the endoscopy suite and laid in the left lateral decubitus position. An Olympus gastroscope was passed along the posterior oropharynx down to the distal esophagus where the squamocolumnar junction was encountered at 40 cm from the incisors. The stomach was entered and no bile reflux was found. Additional findings are listed below. Biopsies with cold forceps were obtained of the antrum. The first through third portion of the duodenum was examined and unremarkable. Retroflexion of the scope confirmed Hill grade 3 lower esophageal valve. The squamocolumnar junction demonstrated LA grade B erosive esophagitis. The stomach was desufflated. The patient tolerated the procedure well. FINDINGS: Squamocolumnar junction 40 cm from the incisors. Diaphragmatic hiatus at 43 cm. Hiatal hernia, 3 cm Hill grade 3 lower esophageal valve. LA grade B erosive esophagitis. No active duodenitis. Chronic gastritis RECOMMENDATIONS: Upper endoscopy as needed.
--- NOTE | 2020-04-29 09:04 | P.OP ---
Date of Procedure: 04/29/20 Description of Procedure: PREOPERATIVE DIAGNOSIS: Colonoscopy screening POSTOPERATIVE DIAGNOSIS: Colonoscopy screening Tubular adenoma ascending colon Internal and external hemorrhoids, grade 2 OPERATION: Colonoscopy to the ileocecal valve and appendiceal orifice. Colonoscopy with multiple hot snare polypectomies SURGEON: Selam Gutierrez MD. ANESTHESIA: MAC. INDICATIONS: The patient is an 54-year-old male who presents for his first colonoscopy screening. Benefits and risks were described and informed consent was obtained. DESCRIPTION OF PROCEDURE: The patient had undergone Suprep. He had been brought into the operating room and laid in the left lateral decubitus position. After adequate intravenous sedation, the rectum was examined with 2% lidocaine jelly. The prostate was unremarkable. External hemorrhoids were encountered. The rectal tone was loose. No lesions were palpated in the rectal vault. An Olympus colonoscope was advanced until the ileocecal valve and appendiceal orifice were clearly viewed. The prep was poor. Highly redundant sigmoid colon report abdominal wall pressu re to advance the scope. Multiple colonic polyps were found and snare polypectomy. No evidence of focal colitis was found. Retroflexion of the scope demonstrated grade 2 internal hemorrhoids without active bleeding or inflammation. The colon was desufflated. The patient had tolerated the procedure well. Withdrawal time was over 6 minutes. FINDINGS: Aronchick preparation quality scale 3 (1-5) Internal hemorrhoids, grade 2 External hemorrhoids, grade 2 No arteriovenous malformations. No sigmoid diverticulosis Redundant sigmoid colon Removal of 2 polyps: - Snare polypectomy ascending colon 2, 3 and 5 mm tubulovillous adenoma polyp. No focal colitis. RECOMMENDATIONS: 1. Repeat colonoscopy in 3 years, 2022 2. Recommend 2 day bowel prep for poor prep Plan - Discharge Summary Discharge Rx Participant: No New Discharge Prescriptions: Continue Umeclidinium [place] [Incruse Ellipta] 1 puff IN QAM Fluticasone/Vilanterol [Breo Ellipta 100-25 Mcg Inhaler] 1 puff INHALATION QAM oxyCODONE-APAP 10-325MG [Percocet 10-325 mg] 1 tab PO Q6HR PRN PRN Reason: Pain Discharge Medication List Fluticasone/Vilanterol [Breo Ellipta 100-25 Mcg Inhaler] 1 puff INHALATION QAM 06/07/18 [History] Umeclidinium [place] [Incruse Ellipta] 1 puff IN QAM 06/07/18 [History] oxyCODONE-APAP 10-325MG [Percocet 10-325 mg] 1 tab PO Q6HR PRN 04/24/20 [History] Follow up Appointment(s)/Referral(s): Selam Gutierrez MD [STAFF PHYSICIAN] - 05/19/20 Patient Instructions/Handouts: Hiatal Hernia (DC), Gastritis (DC), Colorectal Polyps (DC), *Surgery [facility] - (Anesthesia) Endoscopy Discharge Instructions Activity/Diet/Wound Care/Special Instructions: Repeat colonoscopy in 3 years, 2022. Will need at least 2 day bowel prep Discharge Disposition: HOME SELF-CARE
[2020-04-29 09:49] VITALS: BP 115/68; PULSE 59; RESP 20
== END 2020-04-29 10:13 | disposition home or self-care (01) ==
LOC: ORWHC2ENDO 07:41
PROVIDERS: ATTEND Surgery Plastic and Reconstructive Surgery
DX: Z12.11 Encounter for screening for malignant neoplasm of colon (principal); D12.2 Benign neoplasm of ascending colon; K29.50 Unspecified chronic gastritis without bleeding; B96.81 Helicobacter pylori [H. pylori] as the cause of diseases classified elsewhere; K21.0 Gastro-esophageal reflux disease with esophagitis; K22.10 Ulcer of esophagus without bleeding; K44.9 Diaphragmatic hernia without obstruction or gangrene; K64.4 Residual hemorrhoidal skin tags; K64.1 Second degree hemorrhoids; Q43.8 Other specified congenital malformations of intestine; M19.90 Unspecified osteoarthritis, unspecified site; G43.909 Migraine, unspecified, not intractable, without status migrainosus; M54.5 Low back pain; M54.2 Cervicalgia; G89.29 Other chronic pain; F17.210 Nicotine dependence, cigarettes, uncomplicated; Z79.51 Long term (current) use of inhaled steroids; Z88.2 Allergy status to sulfonamides; Z88.0 Allergy status to penicillin; Z91.040 Latex allergy status
CPT/HCPCS: 88305; 88342; 45385; 43239; J2250; J3010; J2704

== ENCOUNTER 2020-06-17 08:10 | Day surgery (SDC) | payer MEDICARE, OTHER ==
[2020-06-15 10:24] VITALS: BMI 21.7
--- NOTE | 2020-06-17 08:03 | P.GSHP ---
History of Present Illness H&P Date: 06/17/20 CHIEF COMPLAINT: GERD HISTORY OF PRESENT ILLNESS: The patient is a 55-year-old male who presents reports gastroesophageal reflux disease. Upper endoscopy was offered for further evaluation and management. PAST MEDICAL HISTORY: Please see list. PAST SURGICAL HISTORY: Please see list. MEDICATIONS: Please see list. ALLERGIES: Please see list. SOCIAL HISTORY: No illicit drug use FAMILY HISTORY: No reports of Crohn disease or ulcerative colitis. REVIEW OF ORGAN SYSTEMS: CONSTITUTIONAL: No reports of fevers or chills. GI: Denies any blood in stools or constipation. PHYSICAL EXAM: VITAL SIGNS: Stable GENERAL: Well-developed and pleasant in no acute distress. HEENT: No scleral icterus. Extraocular movements grossly intact. Moist buccal mucosa. NECK: Supple without lymphadenopathy. CHEST: Unlabored respirations. Equal bilateral excursions. CARDIOVASCULAR: Regular rate and rhythm. Distal 2+ pulses. ABDOMEN: Soft, nondistended. MUSCULOSKELETAL: No clubbing, cyanosis, or edema. ASSESSMENT: 1. Gastroesophageal reflux disease PLAN: 1. Recommend proceeding with an upper endoscopy Past Medical History Past Medical History: Asthma, COPD, Osteoarthritis (OA), Syncope Additional Past Medical History / Comment(s): CURRENT: CHRONIC NECK AND LOWER BACK PAIN., HAVING N/V DAILY. HAD STOMACH INFECTION 04/29/20-WAS ON ANTIBIOTICS History of Any Multi-Drug Resistant Organisms: None Reported Past Surgical History: Orthopedic Surgery Additional Past Surgical History / Comment(s): Neck surgery x2, COLONOSCOPY/EGD Past Anesthesia/Blood Transfusion Reactions: No Reported Reaction Smoking Status: Current every day smoker - Past Family History Mother Family Medical History: No Reported History Medications and Allergies Home Medications Medication Instructions Recorded Confirmed Type Fluticasone/Vilanterol [Breo 1 puff INHALATION [facility] 06/07/18 06/15/20 History Ellipta 100-25 Mcg Inhaler] Umeclidinium [place] [Incruse 1 puff IN QA 06/07/18 06/15/20 History Ellipta] Allergies Allergy/AdvReac Type Severity Reaction Status Date / Time Latex, Natural Rubber Allergy Rash/Hives Verified 06/15/20 10:16 Penicillins Allergy Unknown Verified 06/15/20 10:16 Childhood Sulfa (Sulfonamide Allergy Unknown Verified 06/15/20 10:16 Antibiotics) Childhood
[~2020-06-17 08:10] MED LIST changes: -LIDOCAINE 1% (10MG/ML) FOR IV START INTRADERMA PRN
[2020-06-17 09:15] VITALS: RESP 16; TEMP 98
[2020-06-17] MEDS ORDERED: LIDOCAINE 1% (10MG/ML) FOR IV START INTRADERMA ONE (09:20)
[2020-06-17 09:29] LABS: Glucose,Whole Blood 114 mg/dL (75-99)
[2020-06-17] MEDS ORDERED: LIDOCAINE 1% INJ 10MG/ML (20 ML MDV) ONE (09:32)
[2020-06-17] MEDS ORDERED: PROPOFOL 10 MG/ML 20 ML VIAL IV ONE (09:32)
--- NOTE | 2020-06-17 09:53 | P.PCN ---
Date of Procedure: 06/17/20 Description of Procedure: PREOPERATIVE DIAGNOSIS: Unintentional weight loss Epigastric abdominal pain Gastritis POSTOPERATIVE DIAGNOSIS: Gastritis. Gastroesophageal reflux disease. Diaphragmatic hiatal hernia Gastric diverticula OPERATION: Esophagogastroduodenoscopy with biopsies along antrum. SURGEON: Selam Gutierrez MD ANESTHESIA: MAC. INDICATIONS: The patient is a 55-year-old male who presents with a history of reflux disease. Benefits and risks of the procedure were described. Informed consent was obtained. DESCRIPTION: The patient was brought into the endoscopy suite and laid in the left lateral decubitus position. An Olympus gastroscope was passed along the posterior oropharynx down to the distal esophagus where the squamocolumnar junction was encountered at 38 cm from the incisors. The stomach was entered and no bile reflux was found. Additional findings are listed below. Biopsies with cold forceps were obtained of the antrum. The first through third portion of the duodenum was examined and unremarkable. Retroflexion of the scope confirmed Hill grade 4 lower esophageal valve. The squamocolumnar junction demonstrated LA grade B erosive esophagitis. The stomach was desufflated. The patient tolerated the procedure well. FINDINGS: Squamocolumnar junction 38 cm from the incisors. Diaphragmatic hiatus at 40 cm. Gastric diverticulum, gastric cardia Hill grade 4 lower esophageal valve. LA grade B erosive esophagitis. No active duodenitis. Chronic gastritis RECOMMENDATIONS: 1. Recommend esophagram to evaluate gastric diverticulum versus large paraesophageal hiatal hernia Plan - Discharge Summary Discharge Rx Participant: No New Discharge Prescriptions: Continue Umeclidinium [place] [Incruse Ellipta] 1 puff IN QAM Fluticasone/Vilanterol [Breo Ellipta 100-25 Mcg Inhaler] 1 puff INHALATION QAM oxyCODONE HCL [oxyCODONE HCL (IR)] 10 mg PO Q6H PRN PRN Reason: Moderate Pain Discharge Medication List Fluticasone/Vilanterol [Breo Ellipta 100-25 Mcg Inhaler] 1 puff INHALATION QAM 06/07/18 [History] Umeclidinium [place] [Incruse Ellipta] 1 puff IN QAM 06/07/18 [History] oxyCODONE HCL [oxyCODONE HCL (IR)] 10 mg PO Q6H PRN 06/17/20 [History] Follow up Appointment(s)/Referral(s): Selam Gutierrez MD [STAFF PHYSICIAN] - 07/02/20 Patient Instructions/Handouts: Gastritis (DC), Helicobacter Pylori (GEN), Hia kenan Hernia (ED) Discharge Disposition: HOME SELF-CARE
[2020-06-17 10:21] VITALS: BP 132/83; PULSE 63
== END 2020-06-17 10:37 | disposition home or self-care (01) ==
LOC: ORWHC2ENDO 08:10
PROVIDERS: ATTEND Surgery Plastic and Reconstructive Surgery
DX: K29.50 Unspecified chronic gastritis without bleeding (principal); K21.0 Gastro-esophageal reflux disease with esophagitis; K22.10 Ulcer of esophagus without bleeding; K44.9 Diaphragmatic hernia without obstruction or gangrene; K31.4 Gastric diverticulum; J44.9 Chronic obstructive pulmonary disease, unspecified; M19.90 Unspecified osteoarthritis, unspecified site; G89.29 Other chronic pain; M54.2 Cervicalgia; M54.5 Low back pain; K08.89 Other specified disorders of teeth and supporting structures; I10 Essential (primary) hypertension; F17.210 Nicotine dependence, cigarettes, uncomplicated; Z87.19 Personal history of other diseases of the digestive system; Z98.1 Arthrodesis status; Z79.51 Long term (current) use of inhaled steroids; Z79.899 Other long term (current) drug therapy; Z88.0 Allergy status to penicillin; Z88.2 Allergy status to sulfonamides; Z91.040 Latex allergy status; Z79.891 Long term (current) use of opiate analgesic
CPT/HCPCS: 88305; 43239; J2001; J2704

== ENCOUNTER 2020-09-13 18:19 | Emergency (ER) | payer MEDICARE, OTHER ==
[2020-09-13 18:27] VITALS: TEMP 98
[2020-09-13] MEDS ORDERED: DIPH,PERTUS(ACELL)TETVAC-LF 0.5 ML VIAL IM ONE (18:39)
--- NOTE | 2020-09-13 18:52 | ED ---
General Adult HPI - General Chief complaint: Wound/Laceration Stated complaint: fall, head injury Time Seen by Provider: 09/13/20 18:29 Source: patient, RN notes reviewed, old records reviewed Mode of arrival: ambulatory Limitations: no limitations - History of Present Illness Initial comments: 55-year-old male patient presents to ED for evaluation laceration to the back of his head. Patient he was in the shower he had bent over to pick something up when he stood up he hit the back of his head on a metal shower rack. Denies any loss of consciousness however poorly quite a bit of bleeding and then has been having a headache and some mild nausea since. Does not know date of last tetanus. Denies any other complaints. Systemic: Pt denies fatigue, fever/chills, rash. Pt denies weakness, night sweats, weight loss. Neuro: Pt denies headache, visual disturbances, syncope or pre-syncope. HEENT: Pt denies ocular discharge or irritation, otalgia, rhinorrhea, pharyngitis or notable lymphadenopathy. Cardiopulmonary: Pt denies chest pain, SOB, heart palpitations, dyspnea on exertion. Abdominal/GI: Pt denies abdominal pain, n/v/d. : Pt denies dysuria, burning w/ urination, frequency/urgency. Denies new onset urinary or bowel incontinence. MSK: Pt denies myalgia, loss of strength or function in extremities. Neuro: Pt denies new onset weakness, paresthesias. - Related Data Home Medications Medication Instructions Recorded Confirmed Fluticasone/Vilanterol [Breo 1 puff INHALATION [facility] 06/07/18 06/15/20 Ellipta 100-25 Mcg Inhaler] Umeclidinium [place] [Incruse 1 puff IN QA 06/07/18 06/15/20 Ellipta] oxyCODONE HCL [oxyCODONE HCL (IR)] 10 mg PO Q6H PRN 06/17/20 06/17/20 Allergies Allergy/AdvReac Type Severity Reaction Status Date / Time Latex, Natural Rubber Allergy Rash/Hives Verified 09/13/20 18:27 Penicillins Allergy Unknown Verified 09/13/20 18:27 Childhood Sulfa (Sulfonamide Allergy Unknown Verified 09/13/20 18:27 Antibiotics) Childhood Review of Systems ROS Statement: Those systems with pertinent positive or pertinent negative responses have been documented in the HPI. ROS Other: All systems not noted in ROS Statement are negative. Past Medical History Past Medical History: Asthma, COPD, Osteoarthritis (OA), Syncope Additional Past Medical History / Comment(s): CURRENT: CHRONIC NECK AND LOWER BACK PAIN., HAVING N/V DAILY. HAD STOMACH INFECTION 04/29/20-WAS ON ANTIBIOTICS History of Any Multi-Drug Resistant Organisms: None Reported Past Surgical History: Orthopedic Surgery Additional Past Surgical History / Comment(s): Neck surgery x2, COLONOSCOPY/EGD Past Anesthesia/Blood Transfusion Reactions: No Reported Reaction Past Psychological History: Anxiety, Depression, Schizoaffective Disorder Smoking Status: Current every day smoker Past Alcohol Use History: None Reported Past Drug Use History: Marijuana - Past Family History Mother Family Medical History: No Reported History General Exam - General Exam Comments Initial Comments: Constitutional: NAD, AOX3, Pt has pleasant affect. HEENT: NC/AT, trachea midline, neck supple, no lymphadenopathy. External ears appear normal, without discharge. Mucous membranes moist. Eyes PERRLA, EOM intact. There is no scleral icterus. No pallor noted. Cardiopulmonary: RRR, no murmurs, rubs or gallops, no JVD noted. Lungs CTAB in anterior and posterior alvarenga. No peripheral edema. Abdominal exam: Abdomen soft and non-distended. Abdomen non-tender to palpation in all 4 quadrants. Bowel sounds active in LLQ. No hepatosplenomegaly. No ecchymosis Neuro: CN II-XII intact. No nuchal rigidity. No raccon eyes, no wan sign, no hemotympanum. No cervical spinal tenderness. 1 cm laceration posterior scalp irrigated approximate one staple. MSK: No posterior calf tenderness bilaterally, homans sign negative bilaterally. Posterior tibialis and radial pulse +2 bilaterally. Sensation intact in upper and lower extremities. Full active ROM in upper and lower extremities, 5/5 stregnth. Limitations: no limitations Course Vital Signs 09/13/20 09/13/20 18:22 19:14 Temperature 98 F Pulse Rate 52 L 69 Respiratory 18 16 Rate Blood Pressure 156/88 128/81 O2 Sat by Pulse 98 100 Oximetry Procedures - Laceration Laceration #1 Consent Obtained: verbal consent Indication: laceration Site: scalp Size (cm): 1 Description: linear Depth: simple, single layer Pre-repair: wound explored, irrigated extensively Type of Sutures: other (staple) Number of Sutures: 1 Technique: simple, interrupted Patient Tolerated Procedure: well, no complications Medical Decision Making - Medical Decision Making 55-year-old male patient presents to ED for evaluation after hitting head in the shower. CT brain spine negative for acute process tetanus updated laceration cleaned and approximated one staple. Discharged return precautions. Case discussed with Dr. Mueller. Disposition Clinical Impression: Laceration Disposition: HOME SELF-CARE Condition: Stable Instructions (If sedation given, give patient instructions): Laceration (ED) Additional Instructions: follow-up with primary care provider tomorrow. Return to ER if any worsening symptoms. Please return for suture removal: Scalp: 7 days Please monitor for signs and symptoms of infection including: redness, warmth, drainage, discharge. Please return to ED if these signs or symptoms occur, new signs or symptoms develop or if condition worsens in anyway. Is patient prescribed a controlled substance at d/c from ED?: No Referrals: Ousmane Liu DO [Primary Care Provider] - 1-2 days
[2020-09-13 19:16] VITALS: BP 128/81; PULSE 69; RESP 16
--- NOTE | 2020-09-13 19:19 | CT ---
EXAMINATION TYPE: CT brain cspine wo con DATE OF EXAM: 09/13/2020 COMPARISON: CT cervical spine 03/11/2018 HISTORY: head trauma, back of head CT DLP: 1332.5 mGycm Automated exposure control for dose reduction was used. Ventricles have normal size. There is no mass effect nor midline shift. There is no sign of intracran ial hemorrhage. The calvarium is intact. There is normal aeration of the mastoid sinuses. Temporal neetu bhupinder are intact. Occipital bone is intact. Cervical vertebra have normal alignment. There is old anterior fusion surgery from C5 to C7. The post erior elements are intact. There is no evidence of a fracture. IMPRESSION: Negative CT scan of the brain. Spondylotic changes in the cervical spine with previous fusion surgery. No fracture seen. No change.
== END 2020-09-13 20:26 | disposition home or self-care (01) ==
LOC: EC 18:19
DX: S01.01XA Laceration without foreign body of scalp, initial encounter (principal); J44.9 Chronic obstructive pulmonary disease, unspecified; G89.29 Other chronic pain; M54.2 Cervicalgia; M54.5 Low back pain; F17.200 Nicotine dependence, unspecified, uncomplicated; Z79.899 Other long term (current) drug therapy; Z79.51 Long term (current) use of inhaled steroids; Z91.040 Latex allergy status; Z88.0 Allergy status to penicillin; Z88.2 Allergy status to sulfonamides; Z23 Encounter for immunization; W22.8XXA Striking against or struck by other objects, initial encounter; Y93.E1 Activity, personal bathing and showering; Y92.009 Unspecified place in unspecified non-institutional (private) residence as the place of occurrence of the external cause
CPT/HCPCS: 12001; 70450; 72125; 90471; 90715; 99284

== ENCOUNTER 2021-07-01 05:55 | Emergency (ER) | payer MEDICARE, OTHER ==
[2021-07-01 06:06] VITALS: RESP 18; TEMP 99.2
[2021-07-01] MEDS ORDERED: SODIUM CHLORIDE 0.9% 1,000 ML IV STA (06:20)
[2021-07-01] MEDS ORDERED: ONDANSETRON 4 MG/2 ML VIAL IVP STA (06:20)
[2021-07-01] MEDS ORDERED: MORPHINE SULFATE 4 MG/ML SYRINGE IV STA (06:20)
--- NOTE | 2021-07-01 06:22 | ED ---
General Adult HPI - General Chief complaint: Abdominal Pain Stated complaint: Abdominal Pain Time Seen by Provider: 07/01/21 06:07 Source: patient Mode of arrival: ambulatory Limitations: no limitations - History of Present Illness Initial comments: 56-year-old male with a past medical history of asthma, COPD, chronic neck and back pain presents to the emergency room for a chief complaint of abdominal pain. Patient has had right-sided abdominal pain since yesterday. Patient states he thought it was because he hadn't eaten. However when he finally did eat dinner it did not seem to help. Overnight he was able to sleep however when he got up today to start doing some dishes the pain came back fully. Patient states he did have some nausea and vomiting yesterday. He denies any diarrhea. He denies fevers.Patient has no other complaints at this time including shortness of breath, chest pain, headache, or visual changes. - Related Data Home Medications Medication Instructions Recorded Confirmed Fluticasone/Vilanterol [Breo 1 puff INHALATION QA 06/07/18 06/15/20 Ellipta 100-25 Mcg Inhaler] Umeclidinium [place] [Incruse 1 puff IN QAM 06/07/18 06/15/20 Ellipta] oxyCODONE HCL [oxyCODONE HCL (IR)] 10 mg PO Q6H PRN 06/17/20 06/17/20 Previous Rx's Medication Instructions Recorded Dicyclomine [Bentyl] 20 mg PO TID PRN #20 tablet 07/01/21 Allergies Allergy/AdvReac Type Severity Reaction Status Date / Time Latex, Natural Rubber Allergy Rash/Hives Verified 07/01/21 06:06 Penicillins Allergy Unknown Verified 07/01/21 06:06 Childhood Sulfa (Sulfonamide Allergy Unknown Verified 07/01/21 06:06 Antibiotics) Childhood Review of Systems ROS Statement: Those systems with pertinent positive or pertinent negative responses have been documented in the HPI. ROS Other: All systems not noted in ROS Statement are negative. Past Medical History Past Medical History: Asthma, COPD, Osteoarthritis (OA), Syncope Additional Past Medical History / Comment(s): CURRENT: CHRONIC NECK AND LOWER BACK PAIN., HAVING N/V DAILY. HAD STOMACH INFECTION 04/29/20-WAS ON ANTIBIOTICS History of Any Multi-Drug Resistant Organisms: None Reported Past Surgical History: Orthopedic Surgery Additional Past Surgical History / Comment(s): Neck surgery x2, COLONOSCOPY/EGD Past Anesthesia/Blood Transfusion Reactions: No Reported Reaction Past Psychological History: Anxiety, Depression, Schizoaffective Disorder Smoking Status: Current every day smoker Past Alcohol Use History: None Reported Past Drug Use History: Marijuana - Past Family History Mother Family Medical History: No Reported History General Exam Limitations: no limitations General appearance: alert, in no apparent distress Head exam: Present: atraumatic, normocephalic, normal inspection Eye exam: Present: normal appearance, PERRL, EOMI. Absent: scleral icterus, conjunctival injection, periorbital swelling ENT exam: Present: normal exam, mucous membranes moist Neck exam: Present: normal inspection. Absent: tenderness, meningismus, lymphadenopathy Respiratory exam: Present: normal lung sounds bilaterally. Absent: respiratory distress, wheezes, rales, rhonchi, stridor Cardiovascular Exam: Present: regular rate, normal rhythm, normal heart sounds. Absent: systolic murmur, diastolic murmur, rubs, gallop, clicks GI/Abdominal exam: Present: soft, tenderness (Right-sided abdominal tenderness mostly right upper quadrant), normal bowel sounds. Absent: distended, guarding, rebound, rigid Course Vital Signs 07/01/21 06:03 Temperature 99.2 F Pulse Rate 89 Respiratory 18 Rate Blood Pressure 123/86 O2 Sat by Pulse 97 Oximetry Medical Decision Making - Medical Decision Making Vitals are stable. CBC CMP unremarkable. Urinalysis is negative. CT abdomen and pelvis shows no bowel resection. There is a possible mild enterocolitis without other acute findings. Patient was given pain medication and did have significant improvement in symptoms. He was rehydrated. At this point patient is stable for outpatient follow-up. He has trouble with abdominal pain in the past without finding a cause. He will follow up with his primary care doctor. He will return here for any worsening symptoms. - Lab Data Result diagrams: 07/01/21 06:28 07/01/21 06:28 Lab Results 07/01/21 07/01/21 07/01/21 Range/Units 06:28 06:28 06:28 WBC 13.1 H (3.8-10.6) k/uL RBC 4.14 L (4.30-5.90) m/uL Hgb 14.4 (13.0-17.5) gm/dL Hct 40.9 (39.0-53.0) % MCV 98.9 (80.0-100.0) fL MCH 34.8 (25.0-35.0) pg MCHC 35.2 (31.0-37.0) g/dL RDW 12.7 (11.5-15.5) % Plt Count 337 (150-450) k/uL MPV 7.3 Neutrophils % 81 % Lymphocytes % 11 % Monocytes % 4 % Eosinophils % 2 % Basophils % 0 % Neutrophils # 10.7 H (1.3-7.7) k/uL Lymphocytes # 1.5 (1.0-4.8) k/uL Monocytes # 0.6 (0-1.0) k/uL Eosinophils # 0.3 (0-0.7) k/uL Basophils # 0.0 (0-0.2) k/uL Sodium 134 L (137-145) mmol/L Potassium 5.0 (3.5-5.1) mmol/L Chloride 100 (98-107) mmol/L Carbon Dioxide 22 (22-30) mmol/L Anion Gap 12 mmol/L BUN 16 (9-20) mg/dL Creatinine 0.82 (0.66-1.25) mg/dL Est GFR (CKD-EPI)AfAm >90 (>60 ml/min/1.73 sqM) Est GFR (CKD-EPI)NonAf >90 (>60 ml/min/1.73 sqM) Glucose 120 H (74-99) mg/dL Plasma Lactic Acid Zi (0.7-2.0) mmol/L Calcium 9.9 (8.4-10.2) mg/dL Total Bilirubin 0.9 (0.2-1.3) mg/dL AST 23 (17-59) U/L ALT 9 (4-49) U/L Alkaline Phosphatase 81 (38-126) U/L Total Protein 7.6 (6.3-8.2) g/dL Albumin 4.8 (3.5-5.0) g/dL Amylase 75 (30-110) U/L Lipase 175 (23-300) U/L Urine Color Light Yellow Urine Appearance Clear (Clear) Urine pH 5.5 (5.0-8.0) Ur Specific [place] 1.004 (1.001-1.035) Urine Protein Negative (Negative) Urine Glucose (UA) Negative (Negative) Urine Ketones Negative (Negative) Urine Blood Negative (Negative) Urine Nitrite Negative (Negative) Urine Bilirubin Negative (Negative) Urine Urobilinogen <2.0 (<2.0) mg/dL Ur Leukocyte Esterase Negative (Negative) 07/01/21 Range/Units 06:28 WBC (3.8-10.6) k/uL RBC (4.30-5.90) m/uL Hgb (13.0-17.5) gm/dL Hct (39.0-53.0) % MCV (80.0-100.0) fL MCH (25.0-35.0) pg MCHC (31.0-37.0) g/dL RDW (11.5-15.5) % Plt Count (150-450) k/uL MPV Neutrophils % % Lymphocytes % % Monocytes % % Eosinophils % % Basophils % % Neutrophils # (1.3-7.7) k/uL Lymphocytes # (1.0-4.8) k/uL Monocytes # (0-1.0) k/uL Eosinophils # (0-0.7) k/uL Basophils # (0-0.2) k/uL Sodium (137-145) mmol/L Potassium (3.5-5.1) mmol/L Chloride (98-107) mmol/L Carbon Dioxide (22-30) mmol/L Anion Gap mmol/L BUN (9-20) mg/dL Creatinine (0.66-1.25) mg/dL Est GFR (CKD-EPI)AfAm (>60 ml/min/1.73 sqM) Est GFR (CKD-EPI)NonAf (>60 ml/min/1.73 sqM) Glucose (74-99) mg/dL Plasma Lactic Acid Zi 1.0 (0.7-2.0) mmol/L Calcium (8.4-10.2) mg/dL Total Bilirubin (0.2-1.3) mg/dL AST (17-59) U/L ALT (4-49) U/L Alkaline Phosphatase (38-126) U/L Total Protein (6.3-8.2) g/dL Albumin (3.5-5.0) g/dL Amylase (30-110) U/L Lipase (23-300) U/L Urine Color Urine Appearance (Clear) Urine pH (5.0-8.0) Ur Specific [place] (1.001-1.035) Urine Protein (Negative) Urine Glucose (UA) (Negative) Urine Ketones (Negative) Urine Blood (Negative) Urine Nitrite (Negative) Urine Bilirubin (Negative) Urine Urobilinogen (<2.0) mg/dL Ur Leukocyte Esterase (Negative) Disposition Clinical Impression: Abdominal pain Disposition: HOME SELF-CARE Condition: Good Instructions (If sedation given, give patient instructions): Abdominal Pain (ED) Additional Instructions: Please follow-up with your doctor in one to 2 days. Return to the emergency room for any worsening symptoms. Prescriptions: Dicyclomine [Bentyl] 20 mg PO TID PRN #20 tablet PRN Reason: abdominal pain Is patient prescribed a controlled substance at d/c from ED?: No Referrals: Ousmane Liu DO [Primary Care Provider] - 1-2 days Time of Disposition: 08:27
[2021-07-01 06:56] LABS: Basophils % (A) 0 %; Eosinophils # (A) 0.3 k/uL (0-0.7); Eosinophils % (A) 2 %; HCT 40.9 % (39.0-53.0); HGB 14.4 gm/dL (13.0-17.5); Lymphocytes # (A) 1.5 k/uL (1.0-4.8); Lymphocytes % (A) 11 %; MCH 34.8 pg (25.0-35.0); MCHC 35.2 g/dL (31.0-37.0); MCV 98.9 fL (80.0-100.0); Mean Platelet Volume 7.3; Monocytes # (A) 0.6 k/uL (0-1.0); Monocytes % (A) 4 %; Neutrophils # (A) 10.7 k/uL (1.3-7.7); Neutrophils % (A) 81 %; Platelet Count 337 k/uL (150-450); RBC 4.14 m/uL (4.30-5.90); RDW 12.7 % (11.5-15.5); WBC 13.1 k/uL (3.8-10.6)
[2021-07-01 06:58] LABS: Appearance,Urine Clear (Clear); Bilirubin,Urine Negative (Negative); Blood,Urine Negative (Negative); Color,Urine Light Yellow; Glucose,Urine (UA) Negative (Negative); Ketones,Urine Negative (Negative); Leukocyte Esterase,Urine Negative (Negative); Nitrite,Urine Negative (Negative); PH, Urine 5.5 (5.0-8.0); Protein,Urine Negative (Negative); Specific Gravity,Urine 1.004 (1.001-1.035); Urobilinogen,Urine <2.0 mg/dL (<2.0)
[2021-07-01 07:14] LABS: ALT 9 U/L (4-49); AST 23 U/L (17-59); African American GFR (CKD) >90 (>60 ml/min/1.73 sqM); Albumin 4.8 g/dL (3.5-5.0); Alkaline Phosphatase 81 U/L (38-126); Amylase 75 U/L (30-110); Anion Gap 12 mmol/L; Blood Urea Nitrogen 16 mg/dL (9-20); Calcium 9.9 mg/dL (8.4-10.2); Carbon Dioxide 22 mmol/L (22-30); Chloride 100 mmol/L (98-107); Glucose 120 mg/dL (74-99); Lipase 175 U/L (23-300); Non-African American GFR(CKD) >90 (>60 ml/min/1.73 sqM); Sodium 134 mmol/L (137-145); Total Bilirubin 0.9 mg/dL (0.2-1.3); Total Protein 7.6 g/dL (6.3-8.2)
[2021-07-01] MEDS ORDERED: KETOROLAC 15 MG/ML 1 ML VIAL IVP STA (07:37)
--- NOTE | 2021-07-01 07:43 | CT ---
EXAMINATION TYPE: CT abdomen pelvis w con DATE OF EXAM: 07/01/2021 COMPARISON: CT abdomen and pelvis May 02, 2017 HISTORY: Right sided abdominal pain for 2 days with nausea and vomiting CT DLP: 675.6 mGycm, Automated Exposure Control for Dose Reduction was Utilized. CONTRAST: CT scan of the abdomen and pelvis is performed without oral and with IV Contrast, patient injected wi th 100 ml mL of Isovue 300. FINDINGS: LUNG BASES: No significant abnormality is appreciated. LIVER/GB: No significant abnormality is appreciated. PANCREAS: No significant abnormality is seen. SPLEEN: No significant abnormality is seen. ADRENALS: No significant abnormality is seen. KIDNEYS: Accessory right renal artery. BOWEL: Slightly suboptimal evaluation of bowel without enteric contrast. Scattered air-fluid levels i n the lower abdomen and pelvis which is nonspecific finding could be related to mild enterocolitis. N o suspicious small or large bowel dilatation. Some sigmoid colonic diverticula without CT evidence fo r acute diverticulitis. PROSTATE/SEMINAL VESICLES: No gross abnormality seen. LYMPH NODES: No greater than 1cm abdominal or pelvic lymph nodes are appreciated. OSSEOUS STRUCTURES: Multilevel facet arthropathy in the mid to lower lumbar spine. OTHER: Mild to moderate mixed plaque distal abdominal aorta extends into branch vessels. IMPRESSION: No bowel obstruction. Possible mild enterocolitis. No acute findings otherwise seen.
[2021-07-01 08:46] VITALS: BP 123/79; PULSE 79
== END 2021-07-01 08:45 | disposition home or self-care (01) ==
LOC: EC 05:55
DX: R10.9 Unspecified abdominal pain (principal); J44.9 Chronic obstructive pulmonary disease, unspecified; M19.90 Unspecified osteoarthritis, unspecified site; F17.200 Nicotine dependence, unspecified, uncomplicated; F41.9 Anxiety disorder, unspecified; F32.9 Major depressive disorder, single episode, unspecified; F25.9 Schizoaffective disorder, unspecified; F12.90 Cannabis use, unspecified, uncomplicated
CPT/HCPCS: 96375 ×3; 96361 ×2; 96374 ×2; 99284 ×2; 36415; 80053; 82150; 83605; 83690; 85025; 81003; 74177; J2270; J2405; J1885; Q9967

== ENCOUNTER → 2021-08-12 | Outpatient (CLI) | payer MEDICARE, OTHER ==
--- NOTE | 2021-08-12 09:37 | US ---
EXAMINATION TYPE: US abdomen complete DATE OF EXAM: 08/12/2021 COMPARISON: 02/11/2020 CLINICAL HISTORY: 56-year-old male R10.31 right lower quadrant pain. TECHNIQUE: Multiple sonographic images of the abdomen are obtained. FINDINGS: EXAM MEASUREMENTS: Liver Length: 16.1 Gallbladder Wall: 0.2 cm CBD: 0.5m Spleen: 9.1m Right Kidney: 10.7x4.3x5.5cm Left Kidney: 10.4x4.6x2.6cm Pancreas: wnl Liver: wnl Gallbladder: wnl CBD: wnl Spleen: wnl Right Kidney: wnl Left Kidney: wnl Upper IVC: wnl Abdominal aorta: Proximal abdominal aorta and borderline ectatic at 2.5 cm. Mild atherosclerotic irre gularity is noted. IMPRESSION: Borderline ectatic proximal abdominal aorta at 2.5 cm. Otherwise, unremarkable sonographic examinatio n of the abdomen.
== END | disposition home or self-care (01) ==
LOC: RADUSWWP 06:54
PROVIDERS: ATTEND Family Medicine
DX: I77.811 Abdominal aortic ectasia (principal)
CPT/HCPCS: 76700

== ENCOUNTER → 2022-12-26 | Outpatient (CLI) | payer MEDICARE, OTHER ==
--- NOTE | 2022-12-27 07:28 | US ---
EXAMINATION TYPE: US kidneys/renal and bladder DATE OF EXAM: 12/26/2022 COMPARISON: 2020 [facility] US CLINICAL HISTORY: R39.198 difficulties w/micturition. does not feel full even after a long block of t sana EXAM MEASUREMENTS: Right Kidney: 10.8 x 3.9 x 5.4 cm Left Kidney: 10.4 x 4.8 x 5.3 cm Right Kidney: wnl Left Kidney: wnl Bladder: wnl Bilateral Jets seen: no There is no evidence for hydronephrosis at this point in time. No nephrolithiasis is seen. No queta s are identified. The urinary bladder is anechoic. IMPRESSION: No evidence for obstructive uropathy.
== END | disposition home or self-care (01) ==
LOC: RADUSWWP 15:54
PROVIDERS: ATTEND Family Medicine
DX: R39.198 Other difficulties with micturition (principal)
CPT/HCPCS: 76770

== ENCOUNTER → 2023-12-20 | Outpatient (CLI) | payer MEDICARE, OTHER ==
[2023-12-20 15:56] LABS: Basophils # (A) 0.05 X 10*3/uL (0.00-0.10); Basophils % (A) 0.5 %; Eosinophils # (A) 0.21 X 10*3/uL (0.04-0.35); Eosinophils % (A) 2.3 %; HGB 14.3 g/dL (13.0-17.0); Lymphocytes # (A) 2.03 X 10*3/uL (0.90-5.00); Lymphocytes % (A) 21.8 %; MCH 34.1 pg (27.0-32.0); MCV 100.2 FL (80.0-97.0); Mean Platelet Volume 9.6 FL (9.5-12.2); Monocytes # (A) 0.51 X 10*3/uL (0.20-1.00); Monocytes % (A) 5.5 %; NRBC Per 100 WBC 0 X 10*3/uL (0.00-0.01); Neutrophils # (A) 6.47 X 10*3/uL (1.80-7.70); Neutrophils % (A) 69.4 %; Platelet Count 298 X 10*3/uL (140-440); RBC 4.19 X 10*6/uL (4.40-5.60); RDW 13.7 % (11.5-14.5); WBC 9.32 X 10*3/uL (4.50-10.00)
[2023-12-20 17:21] LABS: Chloride 99 mmol/L (96-109); Chol/HDL Ratio 3.64 Ratio; Glucose 102 mg/dL (70-110); LDL Cholesterol,Calculated 139.5 mg/dL (0.0-131.0); Sodium 137 mmol/L (135-145)
[2023-12-20 17:22] LABS: ALT 9 U/L (10-49); AST 15 U/L (14-35); Albumin 4.7 g/dL (3.8-4.9); Albumin/Globulin Ratio 1.88 Ratio (1.60-3.17); Alkaline Phosphatase 86 U/L (41-126); Globulin 2.5 g/dL (1.6-3.3); Total Bilirubin 0.4 mg/dL (0.3-1.2); Total Protein 7.2 g/dL (6.2-8.2)
== END | disposition home or self-care (01) ==
LOC: LABWHC1 10:52
PROVIDERS: ATTEND Family Medicine
DX: Z12.5 Encounter for screening for malignant neoplasm of prostate (principal); I10 Essential (primary) hypertension; R73.03 Prediabetes
CPT/HCPCS: 36415; 80053; 80061; 83036; 84153; 85025

== ENCOUNTER 2024-10-10 07:48 | Day surgery (SDC) | payer MEDICARE, OTHER ==
[2024-10-09 08:54] VITALS: BMI 22.7
--- NOTE | 2024-10-10 07:35 | P.GSHP ---
History of Present Illness H&P Date: 10/10/24 CHIEF COMPLAINT: GERD and colon screen HISTORY OF PRESENT ILLNESS: The patient is a 59-year-old male identifies as female who presents with gastroesophageal reflux disease and need for colon screen. Upper and lower endoscopy were offered for further evaluation and management. PAST MEDICAL HISTORY: Please see list. PAST SURGICAL HISTORY: Please see list. MEDICATIONS: Please see list. ALLERGIES: Please see list. SOCIAL HISTORY: No illicit drug use FAMILY HISTORY: No reports of Crohn disease or ulcerative colitis. REVIEW OF ORGAN SYSTEMS: CONSTITUTIONAL: No reports of fevers or chills. GI: Denies any blood in stools or constipation. PHYSICAL EXAM: VITAL SIGNS: Stable GENERAL: Well-developed pleasant in no acute distress. HEENT: No scleral icterus. Extraocular movements grossly intact. Moist buccal mucosa. NECK: Supple without lymphadenopathy. CHEST: Unlabored respirations. Equal bilateral excursions. CARDIOVASCULAR: Regular rate and rhythm. Distal 2+ pulses. ABDOMEN: Soft, nondistended. MUSCULOSKELETAL: No clubbing, cyanosis, or edema. ASSESSMENT: 1. Gastroesophageal reflux disease 2. Colon screen. PLAN: 1. Recommend proceeding with an upper and lower endoscopy Past Medical History Past Medical History: Asthma, COPD, Diabetes Mellitus, GERD/Reflux, Osteoarthritis (OA), Syncope Additional Past Medical History / Comment(s): CURRENT: CHRONIC NECK AND LOWER BACK PAIN., MIGRAINES, TRANSITIONING TO FEMALE, DIET CONTROL DIABETIC History of Any Multi-Drug Resistant Organisms: None Reported Past Surgical History: Orthopedic Surgery Additional Past Surgical History / Comment(s): Neck surgery x2, COLONOSCOPY/EGD, VAGINA SURGICALLY CLOSED AROUND 4 YEARS OLD Past Anesthesia/Blood Transfusion Reactions: No Reported Reaction Smoking Status: Current every day smoker - Past Family History Mother Family Medical History: No Reported History Medications and Allergies Home Medications Medication Instructions Recorded Confirmed Type oxyCODONE HCL [oxyCODONE HCL (IR)] 10 mg PO Q6H PRN 06/17/20 10/09/24 History Montelukast [Singulair] 10 mg PO DAILY 06/12/23 10/09/24 History Omeprazole 20 mg PO DAILY 06/12/23 10/09/24 History Propranolol HCl [Propranolol HCl 80 mg PO HS 06/12/23 10/09/24 History ER] SUMAtriptan succinate 100 mg PO DAILY PRN 06/12/23 10/09/24 History lamoTRIgine 100 mg PO HS 06/12/23 10/09/24 History lamoTRIgine 150 mg PO BID 06/12/23 10/09/24 History lisinopriL [Zestril] 5 mg PO DAILY 06/12/23 10/09/24 History Albuterol Inhaler [Ventolin Hfa 1 - 2 puff INHALATION Q6H PRN 10/09/24 10/09/24 History Inhaler] Ciclopirox Olamine [Ciclopirox 1 dose TOPICAL HS 10/09/24 10/09/24 History 0.77% Topical Susp.] Estrogen For Women 1 tab PO DAILY 10/09/24 History Fluticasone/Umeclidin/Vilanter 1 puff INHALATION DAILY 10/09/24 10/09/24 History [Trelegy Ellipta 200-62.5-25] Medroxyprogesterone Acetate 10 mg PO BID 10/09/24 10/09/24 History Pueraria Mirifica 5,000 mg PO DAILY 10/09/24 History Spironolactone 100 mg PO BID 10/09/24 10/09/24 History estradioL 4 mg PO BID 10/09/24 10/09/24 History Allergies Allergy/AdvReac Type Severity Reaction Status Date / Time Latex, Natural Rubber Allergy Rash/Hives Verified 10/09/24 08:30 Penicillins Allergy Unknown Verified 10/09/24 08:30 Childhood Sulfa (Sulfonamide Allergy Unknown Verified 10/09/24 08:30 Antibiotics) Childhood
[~2024-10-10 07:48] MED LIST changes: -LACTATED RINGERS 1,000 ML IV SCH; +LIDOCAINE 1% (10MG/ML) FOR IV START INTRADERMA PRN
[2024-10-10 08:58] VITALS: TEMP 98.3
[2024-10-10] MEDS: IV FLUID CONTINUATION 1,000 ML IV ONE (08:59)
[2024-10-10] MEDS: LACTATED RINGERS 1,000 ML IV SCH (08:59)
[2024-10-10 09:10] LABS: Glucose,Whole Blood 103 mg/dL (70-110)
[2024-10-10] MEDS ORDERED: LIDOCAINE 1% INJ 10MG/ML (20 ML MDV) ONE (09:10)
[2024-10-10] MEDS ORDERED: PROPOFOL 10 MG/ML 20 ML VIAL IV ONE (09:10)
--- NOTE | 2024-10-10 09:29 | P.PCN ---
Date of Procedure: 10/10/24 Description of Procedure: PREOPERATIVE DIAGNOSIS: Gastrointestinal hemorrhage Gastroesophageal reflux disease. POSTOPERATIVE DIAGNOSIS: Esophageal polyps Presbyesophagus Gastritis Gastroesophageal reflux disease due to bile OPERATION: Esophagogastroduodenoscopy with biopsies along esophagus, antrum and duodenum SURGEON: Selam Gutierrez MD ANESTHESIA: MAC. INDICATIONS: The patient is a 59-year-old male who identifies as female who presents with reflux disease. Benefits and risks of the procedure were described. Informed consent was obtained. DESCRIPTION: The patient was brought into the endoscopy suite and laid in the left lateral decubitus position. An Olympus gastroscope was passed along the posterior oropharynx down to the distal esophagus where the squamocolumnar junction was encountered at 43 cm from the incisors. The stomach was entered and bile reflux was found. Additional findings are listed below. Biopsies with cold forceps were obtained of the antrum. The first through third portion of the duodenum was examined. Retroflexion of the scope confirmed Hill grade 3 lower esophageal valve. The squamocolumnar junction demonstrated LA grade C erosive esophagitis. The stomach was desufflated. The patient tolerated the procedure well. FINDINGS: Squamocolumnar junction 43 cm from the incisors. Diaphragmatic hiatus at 43 cm. Hill grade 2 lower esophageal valve. LA grade C erosive esophagitis. Biopsies obtained Biopsies obtained of the duodenum. Chronic gastritis with biopsies obtained. Presence of bile reflux Small hyperplastic esophageal polyps, scattered Moderate tertiary contractions consistent with presbyesophagus RECOMMENDATIONS: Upper endoscopy as needed.
--- NOTE | 2024-10-10 10:00 | P.PCN ---
Date of Procedure: 10/10/24 Description of Procedure: PREOPERATIVE DIAGNOSIS: Abnormal stool test Personal history of colon polyps POSTOPERATIVE DIAGNOSIS: Tubular adenoma hepatic ascending colon Tubular adenoma hepatic flexure Tubular adenoma transverse colon Diverticulosis OPERATION: Colonoscopy to the ileocecal valve, cecum Colonoscopy with hot snare polypectomy SURGEON: Selam Gutierrez MD. ANESTHESIA: MAC. INDICATIONS: The patient is an 59-year-old male who identifies as female presents with abnormal stool test. Benefits and risks were described and informed consent was obtained. DESCRIPTION OF PROCEDURE: The patient had undergone GoLytely prep. The patient had been brought into the operating room and laid in the left lateral decubitus position. After adequate intravenous sedation, the rectum was examined with 2% lidocaine jelly. The prostate was unremarkable. External hemorrhoids were encountered. The rectal tone was within normal limits. No lesions were palpated in the rectal vault. An Olympus colonoscope was advanced until the cecum was viewed clearly viewed. The prep was fair. Scattered diverticulosis was encountered. Colonic polyps were found and removed. No evidence of focal colitis was found. Retroflexion of the scope demonstrated grade 1 internal hemorrhoids without active bleeding or inflammation. The colon was desufflated. The patient had tolerated the procedure well. Withdrawal time was over 6 minutes. FINDINGS: Aronchick preparation quality scale 2 (1-5) Internal hemorrhoids, grade 1 External hemorrhoids, grade 1. No arteriovenous malformations. Scattered diverticulosis Removal of 5 polyps: - Snare polypectomy proximal transverse colon, 5 mm tubulovillous adenoma. - Snare polypectomy hepatic flexure x 3, 4 to 6 mm flat villous adenoma - Snare polypectomy ascending colon, 4 mm flat villous adenoma No focal colitis. RECOMMENDATIONS: Repeat colonoscopy in 3 years, 2026. Plan - Discharge Summary Discharge Rx Participant: No New Discharge Prescriptions: Continue oxyCODONE HCL [oxyCODONE HCL (IR)] 10 mg PO Q6H PRN PRN Reason: Moderate Pain Montelukast [Singulair] 10 mg PO DAILY lisinopriL [Zestril] 5 mg PO DAILY lamoTRIgine 150 mg PO BID estradioL 4 mg PO BID Spironolactone 100 mg PO BID Ciclopirox Olamine [Ciclopirox 0.77% Topical Susp.] 1 dose TOPICAL HS lamoTRIgine 100 mg PO HS SUMAtriptan succinate 100 mg PO DAILY PRN PRN Reason: migraines Propranolol HCl [Propranolol HCl ER] 80 mg PO HS Omeprazole 20 mg PO DAILY Medroxyprogesterone Acetate 10 mg PO BID Fluticasone/Umeclidin/Vilanter [Trelegy Ellipta 200-62.5-25] 1 puff INHALATION DAILY Albuterol Inhaler [Ventolin Hfa Inhaler] 1 - 2 puff INHALATION Q6H PRN PRN Reason: Wheezing Pueraria Mirifica 5,000 mg PO DAILY Estrogen For Women 1 tab PO DAILY Discharge Medication List oxyCODONE HCL [oxyCODONE HCL (IR)] 10 mg PO Q6H PRN 06/17/20 [History] Montelukast [Singulair] 10 mg PO DAILY 06/12/23 [History] Omeprazole 20 mg PO DAILY 06/12/23 [History] Propranolol HCl [Propranolol HCl ER] 80 mg PO HS 06/12/23 [History] SUMAtriptan succinate 100 mg PO DAILY PRN 06/12/23 [History] lamoTRIgine 100 mg PO HS 06/12/23 [History] lamoTRIgine 150 mg PO BID 06/12/23 [History] lisinopriL [Zestril] 5 mg PO DAILY 06/12/23 [History] Albuterol Inhaler [Ventolin Hfa Inhaler] 1 - 2 puff INHALATION Q6H PRN 10/09/24 [History] Ciclopirox Olamine [Ciclopirox 0.77% Topical Susp.] 1 dose TOPICAL HS 10/09/24 [History] Estrogen For Women 1 tab PO DAILY 10/09/24 [History] Fluticasone/Umeclidin/Vilanter [Trelegy Ellipta 200-62.5-25] 1 puff INHALATION DAILY 10/09/24 [History] Medroxyprogesterone Acetate 10 mg PO BID 10/09/24 [History] Pueraria Mirifica 5,000 mg PO DAILY 10/09/24 [History] Spironolactone 100 mg PO BID 10/09/24 [History] estradioL 4 mg PO BID 10/09/24 [History] Follow up Appointment(s)/Referral(s): Selam Gutierrez MD [STAFF PHYSICIAN] - 10/29/24 11:30 am Patient Instructions/Handouts: Colorectal Polyps (GEN), Diverticulosis Diet (GEN) Activity/Diet/Wound Care/Special Instructions: Repeat colonoscopy 3 years, 2026 Discharge Disposition: HOME SELF-CARE
[2024-10-10 10:02] VITALS: RESP 16
[2024-10-10 10:25] VITALS: BP 121/76; PULSE 82
== END 2024-10-10 10:31 | disposition home or self-care (01) ==
LOC: ORWHC2ENDO 07:48
PROVIDERS: ATTEND Surgery Plastic and Reconstructive Surgery
DX: D12.2 Benign neoplasm of ascending colon (principal); D12.3 Benign neoplasm of transverse colon; K29.50 Unspecified chronic gastritis without bleeding; E11.9 Type 2 diabetes mellitus without complications; J44.89 Other specified chronic obstructive pulmonary disease; K21.9 Gastro-esophageal reflux disease without esophagitis; K22.81 Esophageal polyp; K22.89 Other specified disease of esophagus; M19.90 Unspecified osteoarthritis, unspecified site; G43.909 Migraine, unspecified, not intractable, without status migrainosus; F31.9 Bipolar disorder, unspecified; F41.9 Anxiety disorder, unspecified; F17.210 Nicotine dependence, cigarettes, uncomplicated; F12.90 Cannabis use, unspecified, uncomplicated; Z79.899 Other long term (current) drug therapy; Z88.0 Allergy status to penicillin; Z88.1 Allergy status to other antibiotic agents; Z88.2 Allergy status to sulfonamides; Z91.040 Latex allergy status; Z86.0100 Personal history of colon polyps, unspecified
CPT/HCPCS: 88305; 45385; 43239; J2003; J2704

== ENCOUNTER 2025-02-23 02:58 | Emergency (ER) | payer MEDICARE, OTHER ==
[2025-02-23 03:03] VITALS: RESP 18; TEMP 98
[2025-02-23 03:31] LABS: Basophils % (A) 0 %; Eosinophils # (A) 0.3 k/uL (0-0.7); Eosinophils % (A) 3 %; HCT 37.7 % (39.0-53.0); HGB 12.4 gm/dL (13.0-17.5); Lymphocytes # (A) 2.6 k/uL (1.0-4.8); Lymphocytes % (A) 22 %; MCH 33.2 pg (25.0-35.0); MCHC 32.8 g/dL (31.0-37.0); Mean Platelet Volume 7.5; Monocytes # (A) 0.4 k/uL (0-1.0); Monocytes % (A) 4 %; Neutrophils # (A) 8.3 k/uL (1.3-7.7); Neutrophils % (A) 70 %; Platelet Count 372 k/uL (150-450); RBC 3.73 m/uL (4.30-5.90); RDW 13.1 % (11.5-15.5); WBC 11.8 k/uL (3.8-10.6)
[2025-02-23] MEDS: SODIUM CHLORIDE 0.9% 1,000 ML IV ONE (03:32)
[2025-02-23] MEDS: methylPREDNISolone SOD SUCCI 125 MG/2 ML VIAL IV STA (03:32)
[2025-02-23] MEDS: diphenhydrAMINE 50 MG/ML 1 ML VIAL IVP STA (03:32)
[2025-02-23] MEDS: FAMOTIDINE 20 MG/2 ML VIAL IV STA (03:32)
[2025-02-23 03:40] LABS: ALT 11 U/L (4-49); AST 15 U/L (17-59); African American GFR (CKD) >90 (>60 ml/min/1.73 sqM); Albumin 3.7 g/dL (3.5-5.0); Alkaline Phosphatase 56 U/L (38-126); Anion Gap 9 mmol/L; Blood Urea Nitrogen 14 mg/dL (9-20); Calcium 8.7 mg/dL (8.4-10.2); Carbon Dioxide 22 mmol/L (22-30); Chloride 104 mmol/L (98-107); Glucose 131 mg/dL (74-99); Non-African American GFR(CKD) >90 (>60 ml/min/1.73 sqM); Potassium 3.8 mmol/L (3.5-5.1); Sodium 135 mmol/L (137-145); Total Bilirubin 0.3 mg/dL (0.2-1.3); Total Protein 6.4 g/dL (6.3-8.2)
[2025-02-23] MEDS: IPRATROPIUM-ALBUTEROL 3 ML NEB INHALATION STA (03:55)
--- NOTE | 2025-02-23 04:33 | XR ---
EXAM: XR Chest, 1 View CLINICAL HISTORY: ITS.REASON XR Reason: angioedema TECHNIQUE: Frontal view of the chest. COMPARISON: No relevant prior studies available. FINDINGS: Lungs: No consolidation or mass. Pleural space: No acute findings. Heart: No cardiomegaly. Bones/joints: No acute findings. IMPRESSION: No acute cardiopulmonary process.
--- NOTE | 2025-02-23 06:54 | ED ---
General Adult HPI - General Chief complaint: ENT Stated complaint: Speech difficulty Time Seen by Provider: 02/23/25 03:00 Source: patient, RN notes reviewed, old records reviewed Mode of arrival: ambulatory Limitations: no limitations - History of Present Illness Initial comments: Patient is a 59-year-old male who presents emergency department complaining of tongue swelling. Patient went to bed at approximately 11 PM. Awoke at approximately 2 AM with tongue swelling. Presents here for further evaluation. States it has been pretty consistent since 2 AM. Not significantly worse. Denies any difficulty swallowing or breathing. Denies any cough or congestion. No known allergies. Patient is on lisinopril. Denies any nausea or vomiting or abdominal pain. Denies chest pain. Presents for further evaluation at this time. - Related Data Home Medications Medication Instructions Recorded Confirmed oxyCODONE HCL [oxyCODONE HCL (IR)] 10 mg PO Q6H PRN 06/17/20 10/10/24 Montelukast [Singulair] 10 mg PO DAILY 06/12/23 10/10/24 Omeprazole 20 mg PO DAILY 06/12/23 10/10/24 Propranolol HCl [Propranolol HCl 80 mg PO HS 06/12/23 10/10/24 ER] SUMAtriptan succinate 100 mg PO DAILY PRN 06/12/23 10/10/24 lamoTRIgine 100 mg PO HS 06/12/23 10/10/24 lamoTRIgine 150 mg PO BID 06/12/23 10/10/24 lisinopriL [Zestril] 5 mg PO DAILY 06/12/23 10/10/24 Albuterol Inhaler [Ventolin Hfa 1 - 2 puff INHALATION Q6H PRN 10/09/24 10/10/24 Inhaler] Ciclopirox Olamine [Ciclopirox 1 dose TOPICAL HS 10/09/24 10/10/24 0.77% Topical Susp.] Estrogen For Women 1 tab PO DAILY 10/09/24 10/10/24 Fluticasone/Umeclidin/Vilanter 1 puff INHALATION DAILY 10/09/24 10/10/24 [Trelegy Ellipta 200-62.5-25] Medroxyprogesterone Acetate 10 mg PO BID 10/09/24 10/10/24 Pueraria Mirifica 5,000 mg PO DAILY 10/09/24 10/10/24 Spironolactone 100 mg PO BID 10/09/24 10/10/24 estradioL 4 mg PO BID 10/09/24 10/10/24 Previous Rx's Medication Instructions Recorded Famotidine 20 mg PO DAILY 7 Days #7 tab 02/23/25 predniSONE [Deltasone] 40 mg PO DAILY 5 Days #10 tab 02/23/25 Allergies Allergy/AdvReac Type Severity Reaction Status Date / Time lisinopril Allergy Severe angioedema Verified 02/23/25 05:25 Latex, Natural Rubber Allergy Rash/Hives Verified 02/23/25 03:03 Penicillins Allergy Unknown Verified 02/23/25 03:03 Childhood Sulfa (Sulfonamide Allergy Unknown Verified 02/23/25 03:03 Antibiotics) Childhood Review of Systems ROS Statement: Those systems with pertinent positive or pertinent negative responses have been documented in the HPI. Review of Systems: CONST: Denies fever EYES: Denies blurry vision ENT: Endorses tongue swelling C/V: Denies Chest pain RESP: Denies shortness of breath GI: Denies abdominal pain : Denies dysuria SKIN: Denies rash. MSK: Denies joint pain. NEURO: Denies headache ROS Other: All systems not noted in ROS Statement are negative. Past Medical History Past Medical History: Asthma, COPD, Diabetes Mellitus, GERD/Reflux, Hypertension, Osteoarthritis (OA), Syncope Additional Past Medical History / Comment(s): CURRENT: CHRONIC NECK AND LOWER BACK PAIN., MIGRAINES, TRANSITIONING TO FEMALE, DIET CONTROL DIABETIC History of Any Multi-Drug Resistant Organisms: None Reported Past Surgical History: Orthopedic Surgery Additional Past Surgical History / Comment(s): Neck surgery x2, COLONOSCOPY/EGD, VAGINA SURGICALLY CLOSED AROUND 4 YEARS OLD Past Anesthesia/Blood Transfusion Reactions: No Reported Reaction Past Psychological History: Anxiety, Bipolar, Depression Smoking Status: Current every day smoker Past Alcohol Use History: None Reported Past Drug Use History: Marijuana - Past Family History Mother Family Medical History: No Reported History General Exam - General Exam Comments Initial Comments: General: Appears in no acute distress. HEAD: Normal with no signs of head trauma. EYES: EOMI ENT: Hearing grossly intact. No stridor. Left tongue edema. No posterior oropharyngeal swelling. Uvula is midline. RESPIRATORY: Clear breath sounds bilaterally. No wheezes, rales, or rhonchi. C/V: Regular rate rhythm. S1 and S2 auscultated. ABD: Abd is soft, nontender, nondistended EXT: Normal range of motion, no obvious deformity SKIN: No rashes or lesions observed on exposed skin. NEURO: Alert and oriented x 4. Limitations: no limitations Course Vital Signs 02/23/25 02/23/25 02/23/25 03:00 03:56 04:02 Temperature 98 F Pulse Rate 67 68 68 Respiratory 18 Rate Blood Pressure 128/78 O2 Sat by Pulse 100 Oximetry Medical Decision Making - Medical Decision Making Was pt. sent in by a medical professional or institution (, RACHEL, CERAMIC TILE INSTALLER, urgent care, hospital, or longterm...) When possible be specific @ -No Did you speak to anyone other than the patient for history (EMS, parent, family, police, friend...)? What history was obtained from this source @ -No Did you review nursing and triage notes (agree or disagree)? Why? @ -I reviewed and agree with nursing and triage notes Were old charts reviewed (outside hosp., previous admission, EMS record, old EKG, old radiological studies, urgent care reports/EKG's, longterm records)? Report findings @ -No old charts were reviewed Differential Diagnosis (chest pain, altered mental status, abdominal pain women, abdominal pain men, vaginal bleeding, weakness, fever, dyspnea, syncope, headache, dizziness, GI bleed, back pain, seizure, CVA, palpatations, mental health, musculoskeletal)? @ -Allergic reaction, anaphylaxis, angioedema. This list is not all inclusive EKG interpreted by me (3pts min.). @ -As above X-rays interpreted by me (1pt min.). @ -X-ray reveals no obvious acute cardiopulmonary process. CT interpreted by me (1pt min.). @ -None done U/S interpreted by me (1pt. min.). @ -None done What testing was considered but not performed or refused? (CT, X-rays, U/S, labs)? Why? @ -None What meds were considered but not given or refused? Why? @ -None Did you discuss the management of the patient with other professionals (professionals i.e. , RACHEL, CERAMIC TILE INSTALLER, lab, RT, psych nurse, social media sr strategy manager, low altitude air defense gunner, teacher, telecommunications officer, showcase trimmer)? Give summary @ -No Was smoking cessation discussed for >3mins.? @ -No Was critical care preformed (if so, how long)? @ -Yes, 36 minutes. Frequent reevaluations. Were there social determinants of health that impacted care today? How? (Homelessness, low income, unemployed, alcoholism, drug addiction, transportation, low edu. Level, literacy, decrease access to med. care, alf, rehab)? @ -No Was there de-escalation of care discussed even if they declined (Discuss DNR or withdrawal of care, Hospice)? DNR status @ -No What co-morbidities impacted this encounter? (DM, HTN, Smoking, COPD, CAD, Cancer, CVA, ARF, Chemo, Hep., AIDS, mental health diagnosis, sleep apnea, morbid obesity)? @ -Patient is on lisinopril. Was patient admitted / discharged? Hospital course, mention meds given and route, prescriptions, significant lab abnormalities, going to OR and other pertinent info. @ -Patient presents emergency department with what appears to be left tongue angioedema. Isolated to the left tongue. Tolerating oral secretions. No stridor. No respiratory distress. Patient is on lisinopril which is likely the culprit of the angioedema. Vital signs are within acceptable limits. Patient will be administered IV steroids 125 mg of Solu-Medrol, Pepcid 40 mg IV, Benadryl 50 mg IV. Patient administered IV fluids. Basic labs obtained. Patient was in agreement this plan. EKG shows no signs of acute ischemia. Laboratory studies are unremarkable. Chest x-ray shows no obvious acute cardiopulmonary process. On reevaluation, patient's tongue swelling is improved. We will continue to monitor the patient for at least 3 hours here in the department. Patient was in agreement this plan. Is in no respiratory distress. Tolerating oral secretions. Throughout the observation period, patient's tongue eventually went down to no edema. No swelling. No distress. Patient's symptoms have completely resolved. Patient has been observed for nearly 4 hours here in the department. Patient will be discharged home at this time. Instructed him to stop taking his lisinopril and he was in agreement this plan. He will dispose of the me dication. Allergy added to his chart. Patient be discharged home with prescription for Pepcid and prednisone. Strict return precautions discussed. I will provide the patient with a prescription for prednisone, Pepcid. I instructed the patient to follow up with their PCP in the next 1-3 days. I explained that the patient should return to the emergency department if they experience any worsening symptoms. Strict return precautions were discussed with the patient. The patient expressed understanding of these instructions. I answered all questions that the patient had. The patient was discharged home in good condition with their prescriptions and follow up information. Undiagnosed new problem with uncertain prognosis? @ -No Drug Therapy requiring intensive monitoring for toxicity (Heparin, Nitro, Insulin, Cardizem)? @ -No Were any procedures done? @ -No Diagnosis/symptom? @ -Angioedema, likely secondary to lisinopril Acute, or Chronic, or Acute on Chronic? @ -Acute Uncomplicated (without systemic symptoms) or Complicated (systemic symptoms)? @ -Uncomplicated Side effects of treatment? @ -No Exacerbation, Progression, or Severe Exacerbation? @ -No Poses a threat to life or bodily function? How? (Chest pain, [place], [place], pneumonia, PE, COPD, DKA, ARF, appy, cholecystitis, CVA, Diverticulitis, Homicidal, Suicidal, threat to staff... and all critical care pts) @ -Unlikely at this time - Lab Data Result diagrams: 02/23/25 03:14 02/23/25 03:14 Lab Results 02/23/25 02/23/25 Range/Units 03:14 03:14 WBC 11.8 H (3.8-10.6) k/uL RBC 3.73 L (4.30-5.90) m/uL Hgb 12.4 L (13.0-17.5) gm/dL Hct 37.7 L (39.0-53.0) % MCV 101.0 H (80.0-100.0) fL MCH 33.2 (25.0-35.0) pg MCHC 32.8 (31.0-37.0) g/dL RDW 13.1 (11.5-15.5) % Plt Count 372 (150-450) k/uL MPV 7.5 Neutrophils % 70 % Lymphocytes % 22 % Monocytes % 4 % Eosinophils % 3 % Basophils % 0 % Neutrophils # 8.3 H (1.3-7.7) k/uL Lymphocytes # 2.6 (1.0-4.8) k/uL Monocytes # 0.4 (0-1.0) k/uL Eosinophils # 0.3 (0-0.7) k/uL Basophils # 0.0 (0-0.2) k/uL Sodium 135 L (137-145) mmol/L Potassium 3.8 (3.5-5.1) mmol/L Chloride 104 (98-107) mmol/L Carbon Dioxide 22 (22-30) mmol/L Anion Gap 9 mmol/L BUN 14 (9-20) mg/dL Creatinine 0.69 (0.66-1.25) mg/dL Est GFR (CKD-EPI)AfAm >90 (>60 ml/min/1.73 sqM) Est GFR (CKD-EPI)NonAf >90 (>60 ml/min/1.73 sqM) Glucose 131 H (74-99) mg/dL Calcium 8.7 (8.4-10.2) mg/dL Total Bilirubin 0.3 (0.2-1.3) mg/dL AST 15 L (17-59) U/L ALT 11 (4-49) U/L Alkaline Phosphatase 56 (38-126) U/L Total Protein 6.4 (6.3-8.2) g/dL Albumin 3.7 (3.5-5.0) g/dL - EKG Data -: EKG Interpreted by Me EKG Comments: 12-lead Electrocardiogram Interpretation Note EKG was reviewed and interpreted by myself. 12-lead ECG performed at 0321 is i nterpreted by me as revealing normal sinus rhythm at a rate of 58 beats per minute. [place] is normal. HI interval is 178 ms, QRS duration is 89 ms, QTc is 422 ms.. There were no ST or T wave abnormalities to suggest myocardial ischemia or injury. R wave progression across the precordium was satisfactory. By my interpretation this EKG is non-diagnostic for acute ischemia. Disposition Clinical Impression: Angioedema Disposition: HOME SELF-CARE Condition: Good Instructions (If sedation given, give patient instructions): Angioedema (ED) Additional Instructions: Do not take your lisinopril. Dispose of this medication. You are to reaction to it called angioedema. Please monitor your symptoms. Complete course of steroids, Pepcid. Return to the emergency department if any worsening symptoms. Follow-up with your PCP 1 to 3 days regarding possible blood pressure medication, as we both agreed not to initiate a new blood pressure medicine you are on a small dose originally and you feel like it is not having any effect. Prescriptions: predniSONE [Deltasone] 40 mg PO DAILY 5 Days #10 tab Famotidine 20 mg PO DAILY 7 Days #7 tab Is patient prescribed a controlled substance at d/c from ED?: No Referrals: Niraj Gomez MD [Primary Care Provider] - 1-2 days Time of Disposition: 06:50
[2025-02-23 07:38] VITALS: BP 117/74; PULSE 63
== END 2025-02-23 07:39 | disposition home or self-care (01) ==
LOC: EC 02:58
DX: T78.3XXA Angioneurotic edema, initial encounter (principal); F17.290 Nicotine dependence, other tobacco product, uncomplicated; Z88.8 Allergy status to other drugs, medicaments and biological substances; Z91.040 Latex allergy status; Z88.0 Allergy status to penicillin; Z88.2 Allergy status to sulfonamides
CPT/HCPCS: 36415; 94640; 93005; 80053; 85025; 71045; 99285; 96374; 96375 ×2; 96361; J1200; J3490; J2919